=== PATIENT | female | born 1950 | race Two or more races ===

== ENCOUNTER 2021-03-26 12:33 | Outpatient (REF) | payer MEDICARE, SELFPAY ==
--- NOTE | ~2021-03-26 | MM_ITS ---
EXAMINATION: MM SCREENING DIGITAL BREAST TOMOSYNTHESIS, BILATERAL CLINICAL INFORMATION: Screening. Asymptomatic. The lifetime risk of breast cancer based on the Tyrer-Cuzick Model is 1.4%. COMPARISON: Mammography: July 09, 2019 and studies dating back to August 11, 2016 TECHNIQUE: Digital breast tomosynthesis is performed in both the craniocaudal and mediolateral oblique views along with computer-aided detection (CAD). Synthesized 2D images are generated from the tomosynthesis. FINDINGS: There are scattered areas of fibroglandular density (ACR BI-RADS breast composition Category b). There are no significant masses, abnormal calcifications, or other abnormalities. MM/MM tomosynthesis screening BI IMPRESSION: There are no significant changes from prior study. ASSESSMENT: BI-RADS 1: Negative RECOMMENDATION: Routine annual mammography screening. This patient's information was entered into a reminder system with a target due date for their next mammogram.
--- NOTE | ~2021-03-26 | MM_ITS ---
EXAMINATION: BONE DENSITOMETRY CLINICAL INDICATION: Osteoporosis. COMPARISON: None (current study represents initial baseline exam). TECHNIQUE: Using a [employer] DXA System (software version: 13.1) manufactured by [employer], dual-energy x-ray absorptiometry was performed of the lumbar spine and left hip. The images are of good technical quality. Summary results are attached. FINDINGS: AP SPINE L1-L4: BMD 1.074 g/cm2, Z-score 0.6, T-score -0.9, normal. LEFT FEMUR, NECK: BMD 0.844 g/cm2, Z-score 0.1, T-score -1.4, osteopenia. LEFT FEMUR, TOTAL: BMD 1.003 g/cm2, Z-score 1.3, T-score 0.0, normal. IDENTIFIED RISK FACTORS: Early menopause, secondary osteoporosis, hysterectomy. HISTORY OF FRACTURE: None listed. MEDICATIONS: Calcium supplements or multivitamin, vitamin D. MM/XR DEXA axial skeleton IMPRESSION: 1. DIAGNOSIS: Osteopenia based on the lowest T-score value of -1.4 in the femoral neck applying World Health Organization criteria. 2. 10-YEAR FRACTURE RISK PREDICTION, FRAX: Major osteoporotic fracture (clinical spine, forearm, hip or shoulder) 5.3%. Hip fracture 0.7%. 3. Treatment Recommendations: NOF guidelines recommend consideration for treatment in postmenopausal women and men age 50 and older presenting with the following: -A hip or vertebral (clinical or morphometric) fracture. -T-score less than or equal to -2.5 at the femoral neck or spine after appropriate evaluation to exclude secondary causes. -Low bone mass at the hip or spine and a 10-year fracture probability by FRAX of greater than or equal to 3% for hip fracture or greater than or equal to 20% for major osteoporotic fracture based on the [place] adapted WHO algorithm. 4. Other Recommendations: All treatment decisions require clinical judgment and consideration of individual patient factors, including patient preferences, comorbidities, previous drug use, risk factors not captured in the FRAX model (e.g. frailty, falls, vitamin D deficiency, increased bone turnover, interval significant decline in bone density) and possible under or overestimation of fracture risk by FRAX. Additional medical evaluation for secondary cause of low bone mineral density may be appropriate. FUTURE SCAN RECOMMENDATION: People with diagnosed cases of osteoporosis or at high risk for fracture should have regular bone mineral density tests. For patients eligible for Medicare, routine testing is allowed once every 2 years. The testing frequency can be increased to one year for patients who have rapidly progressing disease, those who are receiving or discontinuing medical therapy to restore bone mass, or have additional risk factors.
== END 2021-03-26 12:34 | disposition home or self-care (01) ==
LOC: HO.MAMMO 12:33
PROVIDERS: Visit Provider Internal Medicine Geriatric Medicine
DX: Z12.31 Encounter for screening mammogram for malignant neoplasm of breast (principal); Z13.820 Encounter for screening for osteoporosis; M85.80 Other specified disorders of bone density and structure, unspecified site; Z78.0 Asymptomatic menopausal state; Z98.890 Other specified postprocedural states; Z79.899 Other long term (current) drug therapy
CPT/HCPCS: 77063; 77067; 77080

== ENCOUNTER → 2021-12-22 10:14 | Outpatient (BNVA) | payer MEDICARE, SELFPAY | PROVIDERS: PCP Internal Medicine Geriatric Medicine; Referring Provider Internal Medicine Geriatric Medicine; Visit Provider Internal Medicine Cardiovascular Disease | DX: R07.2 Precordial pain (principal) | CPT/HCPCS: 93005; 99202 ==

== ENCOUNTER → 2022-02-15 10:50 | Outpatient (REF) | payer MEDICARE, SELFPAY ==
--- NOTE | 2022-02-15 10:56 | CA_ITS ---
Acquisition Time: 2022-02-15 11:24:48 Total Exercise Time: 00:03:14 Test Indications: Chest Pain Medications: ATORVASTATIN CANAGLIFLOZIN/METFORMIN OMEPRAZOLE VALSARTAN Protocol: ESTELLA Max HR: 142 BPM 95% of Pred: 149 BPM Max BP: 140/088 mmHG Max Work Load: 4.6 METS Exercise stress test with exercise 3 min 14 sec of Estella stage 1, achieving 95% MPHR, with report of knee pains and need to stop, without anginal symptoms, with isolated PACs and PVCs, ventricular cuplets, one triplet, with normotensive response to exercise, without EKG changes meeting criteria for ischemia, with nonspecific ST abnormality inferiorly at baseline and more pronounced in recovery. Echo images obtained by Beeline at rest and immediately post peak exercise. Definity contrast used. Test reviewed with Dr Darby Referred By: Chapito Darby Overread By: LEVY GREEN
== END ==
LOC: HO.CARD 10:50
PROVIDERS: PCP Internal Medicine Geriatric Medicine; Visit Provider Internal Medicine Cardiovascular Disease
DX: R07.2 Precordial pain (principal)
CPT/HCPCS: 93350; Q9957

== ENCOUNTER 2022-03-29 13:38 | Outpatient (REF) | payer MEDICARE, SELFPAY ==
--- NOTE | ~2022-03-29 | MM_ITS ---
EXAMINATION: MM SCREENING DIGITAL BREAST TOMOSYNTHESIS, BILATERAL CLINICAL INFORMATION: Screening. Asymptomatic. The lifetime risk of breast cancer based on the Tyrer-Cuzick Model is 3%. COMPARISON: Mammography: March 26, 2021 and studies dating back to August 11, 2016 TECHNIQUE: Digital breast tomosynthesis is performed in both the craniocaudal and mediolateral oblique views along with computer-aided detection (CAD). Synthesized 2D images are generated from the tomosynthesis. FINDINGS: There are scattered areas of fibroglandular density (ACR BI-RADS breast composition Category b). There are no significant masses, abnormal calcifications, or other abnormalities. MM/MM tomosynthesis screening BI IMPRESSION: No significant changes from prior exam. ASSESSMENT: BI-RADS 1: Negative RECOMMENDATION: Routine annual mammography screening. This patient's information was entered into a reminder system with a target due date for their next mammogram.
== END 2022-03-29 13:39 | disposition home or self-care (01) ==
LOC: HO.MAMMO 13:38
PROVIDERS: PCP Internal Medicine Geriatric Medicine; Visit Provider Internal Medicine Geriatric Medicine
DX: Z12.31 Encounter for screening mammogram for malignant neoplasm of breast (principal)
CPT/HCPCS: 77063; 77067

== ENCOUNTER 2023-04-04 13:01 | Outpatient (REF) | payer MEDICARE, SELFPAY | END 2023-04-04 13:02 | disposition home or self-care (01) | LOC: HO.MAMMO 13:01 | PROVIDERS: PCP Internal Medicine Geriatric Medicine; Visit Provider Internal Medicine Geriatric Medicine | DX: Z12.31 Encounter for screening mammogram for malignant neoplasm of breast (principal) | CPT/HCPCS: 77063; 77067 ==

== ENCOUNTER → 2023-04-04 13:30 | Outpatient (BNV) | payer MEDICARE, SELFPAY | PROVIDERS: PCP Internal Medicine Geriatric Medicine; Visit Provider Radiology Diagnostic Radiology | DX: Z12.31 Encounter for screening mammogram for malignant neoplasm of breast (principal) | CPT/HCPCS: 77063; 77067 ==

== ENCOUNTER 2023-07-14 09:38 | Outpatient (REF) | payer MEDICARE, SELFPAY ==
[2023-07-14 12:03] LABS: Creatinine Urine 121.68 mg/dL; Microalbum/Creatinine Ratio Ur 7.3 ug/mg cr (<30)
[2023-07-14 12:13] LABS: Alanine Aminotransferase 16 U/L (0-31); Albumin Level 3.9 g/dL (3.5-5.0); Alkaline Phosphatase 50 U/L (39-117); Anion Gap 13 (12-20); Aspartate Amino Transferase 16 U/L (5-31); Bilirubin Total 0.7 mg/dL (0.0-1.0); Blood Urea Nitrogen 13 mg/dL (9-16); Calcium 9.4 mg/dL (8.4-10.2); Carbon Dioxide 28 mmol/L (22-29); Chloride 104 mmol/L (96-108); Estimated Glomerular Filt Rate > 60; Glucose Random 109 mg/dL (60-115); Potassium 3.9 mmol/L (3.3-5.1); Sodium 141 mmol/L (135-145); Total Protein 6.9 g/dL (6.5-8.0)
== END 2023-07-14 09:39 | disposition home or self-care (01) ==
LOC: HO.HHCL 09:38
PROVIDERS: Visit Provider Internal Medicine Geriatric Medicine
DX: E11.65 Type 2 diabetes mellitus with hyperglycemia (principal)
CPT/HCPCS: 36415; 80053; 82043; 82570

== ENCOUNTER 2023-08-10 09:08 | Outpatient (REF) | payer MEDICARE, SELFPAY ==
[2023-08-10 11:54] LABS: Cholesterol 129 mg/dL (<200); HDL Cholesterol 49 mg/dL (>40); LDL Cholesterol Calculated 64 mg/dL (<100); Triglycerides 80 mg/dL (<150)
== END 2023-08-10 09:09 | disposition home or self-care (01) ==
LOC: HO.HHCL 09:08
PROVIDERS: Visit Provider Internal Medicine Geriatric Medicine
DX: E11.65 Type 2 diabetes mellitus with hyperglycemia (principal)
CPT/HCPCS: 36415; 80061

== ENCOUNTER 2024-02-26 09:42 | Outpatient (REF) | payer MEDICARE, SELFPAY ==
[2024-02-26 11:55] LABS: Anion Gap 11 (12-20); Blood Urea Nitrogen 11 mg/dL (9-16); Calcium 9.5 mg/dL (8.4-10.2); Carbon Dioxide 29 mmol/L (22-29); Chloride 106 mmol/L (96-108); Estimated Glomerular Filt Rate > 60; Glucose Random 92 mg/dL (60-115); Potassium 3.7 mmol/L (3.3-5.1); Sodium 142 mmol/L (135-145)
== END 2024-02-26 09:43 | disposition home or self-care (01) ==
LOC: HO.HHCL 09:42
PROVIDERS: Visit Provider Internal Medicine Geriatric Medicine
DX: E11.65 Type 2 diabetes mellitus with hyperglycemia (principal)
CPT/HCPCS: 36415; 80048

== ENCOUNTER 2024-04-10 11:05 | Outpatient (REF) | payer MEDICARE, SELFPAY ==
--- NOTE | ~2024-04-10 | MM_ITS ---
EXAMINATION: BONE DENSITOMETRY CLINICAL INDICATION: Osteopenia. COMPARISON: Baseline BD dated 03/26/2021. TECHNIQUE: Using a [employer] DXA System (software version: 13.1) manufactured by [employer], dual-energy x-ray absorptiometry was performed of the lumbar spine and left hip. The images are of good technical quality. Summary results are attached. FINDINGS: LEFT FEMUR, NECK: Current: BMD 0.850 g/cm2, Z-score 0.3, T-score -1.4, osteopenia. Baseline: BMD 0.844 g/cm2. LEFT FEMUR, TOTAL: Current: BMD 0.989 g/cm2, Z-score 1.3, T-score -0.2, normal, 1.4% decrease from baseline (<5% change is not significant). Baseline: BMD 1.003 g/cm2. AP SPINE L1-L3 (excluding L4): The data of L1-L4 has been changed to exclude the L4 vertebral body, because significant degenerative changes at this level may cause overestimation of lumbar spine density. Current: BMD 1.030 g/cm2, Z-score 0.3, T-score -1.2, osteopenia, 0.5% decrease from baseline (<5% change is not significant). Baseline: BMD 1.035 g/cm2. IDENTIFIED RISK FACTORS: Early menopause, secondary osteoporosis, hysterectomy. HISTORY OF FRACTURE: None listed. MEDICATIONS: Vitamin D. MM/XR DEXA axial skeleton IMPRESSION: 1. DIAGNOSIS: Osteopenia based on the lowest T-score value of -1.4 in the femoral neck applying World Health Organization criteria. 2. 10-YEAR FRACTURE RISK PREDICTION, FRAX: Major osteoporotic fracture (clinical spine, forearm, hip or shoulder) 5.7%. Hip fracture 0.9%. 3. Treatment Recommendations: NOF guidelines recommend consideration for treatment in postmenopausal women and men age 50 and older presenting with the following: -A hip or vertebral (clinical or morphometric) fracture. -T-score less than or equal to -2.5 at the femoral neck or spine after appropriate evaluation to exclude secondary causes. -Low bone mass at the hip or spine and a 10-year fracture probability by FRAX of greater than or equal to 3% for hip fracture or greater than or equal to 20% for major osteoporotic fracture based on the [place] adapted WHO algorithm. 4. Other Recommendations: All treatment decisions require clinical judgment and consideration of individual patient factors, including patient preferences, comorbidities, previous drug use, risk factors not captured in the FRAX model (e.g. frailty, falls, vitamin D deficiency, increased bone turnover, interval significant decline in bone density) and possible under or overestimation of fracture risk by FRAX. Additional medical evaluation for secondary cause of low bone mineral density may be appropriate. FUTURE SCAN RECOMMENDATION: People with diagnosed cases of osteoporosis or at high risk for fracture should have regular bone mineral density tests. For patients eligible for Medicare, routine testing is allowed once every 2 years. The testing frequency can be increased to one year for patients who have rapidly progressing disease, those who are receiving or discontinuing medical therapy to restore bone mass, or have additional risk factors. Electronically signed by: Araseli rGegory MD 04/10/2024 04:46 PM [facility] SCHMITT
--- NOTE | ~2024-04-10 | MM_ITS ---
EXAMINATION: MM SCREENING DIGITAL BREAST TOMOSYNTHESIS, BILATERAL CLINICAL INFORMATION: Screening. Asymptomatic. COMPARISON: Mammography: Comparison is made with available priors TECHNIQUE: Digital breast mammography with tomosynthesis is performed in both the craniocaudal and mediolateral oblique views along with computer-aided detection (CAD). FINDINGS: There are scattered areas of fibroglandular density (ACR BI-RADS breast composition Category b). There are no significant masses, abnormal calcifications, or other abnormalities. MM/MM tomosynthesis screening BI IMPRESSION: No mammographic evidence of malignancy. ASSESSMENT: BI-RADS BI-RADS 1 - Negative RECOMMENDATION: Routine annual mammography screening. 1 year F/U This examination should not preclude the clinical evaluation of a suspicious palpable abnormality. This patient's information was entered into a reminder system with a target due date for their next mammogram. Electronically signed by: Asha Boone DO 04/19/2024 01:40 PM [facility]
== END 2024-04-10 11:06 | disposition home or self-care (01) ==
LOC: HO.MAMMO 11:05
PROVIDERS: PCP Internal Medicine Geriatric Medicine; Visit Provider Internal Medicine Geriatric Medicine
DX: Z12.31 Encounter for screening mammogram for malignant neoplasm of breast (principal); Z13.820 Encounter for screening for osteoporosis; Z78.0 Asymptomatic menopausal state; M85.80 Other specified disorders of bone density and structure, unspecified site
CPT/HCPCS: 77063; 77067; 77080

== ENCOUNTER → 2024-04-10 11:15 | Outpatient (BNV) | payer MEDICARE, SELFPAY | PROVIDERS: PCP Internal Medicine Geriatric Medicine; Visit Provider Internal Medicine | DX: Z12.31 Encounter for screening mammogram for malignant neoplasm of breast (principal) | CPT/HCPCS: 77063; 77067 ==

== ENCOUNTER 2024-08-07 07:56 | Outpatient (REF) | payer MEDICARE, SELFPAY ==
--- OUTSIDE RECORDS SUMMARY | 2024-08-07 08:04 | XMS_ITS | Data Portability ---
Author Organization [facility] [place] [facility], [facility] Address [address] [place] [address] Care Team Providers Care Crane Follower Name Role Phone NAME, PRIMO Primary Care Provider Assessment Encounter Date Assessment Date Assessment LastModified by Organization Details LastModified Time 10/04/2023 10/04/2023 I am seeing the patient today under the supervision of Dr. Ramos who was available but who did not see the patient. HPI: Patient presents today follow-up regarding their Right knee. They have had difficulty up and down stairs sitting standing. Previous injection gave good relief until recent. Problems ambulating. Tusu-wwa-wlfebvi medications are helping somewhat but not significantly. Pain is constant aching sometimes sharp pain with giving out sensations. Past family, medical, social history and review of systems has been reviewed, updated and is located in the patient? s chart. Examination: The patient is well appearing and in no apparent distress. Alert and oriented x3. Gait is symmetric. Examination of the Right knee reveals no evidence of any edema, erythema, or warmth. No Deformity. Range of motion of the knee limited with mild discomfort at the end ranges. Mild effusion. Does have some tenderness to palpation about the medial hemijoint line. No tenderness to palpation about the lateral hemijoint line. Patellofemoral crepitus is noted. mild lateral ligamentous laxity. Negative Soumya? s. Calf is supple and nontender. Neurovascularly intact distally. Impression: Right Knee osteoarthritis Plan: We discussed the role of conservative management including medications, physical therapy, injection and bracing. At this point the patient was to proceed with injection. Please see procedure note. They will follow up with us as scheduled. [email or web address] Not available 10/04/2023 14:24:25 03/21/2024 03/21/2024 I am seeing the patient today under the supervision of Dr Ramos who was available but who did not see the patient. [email or web address] Not available 03/21/2024 11:04:14 07/05/2024 07/05/2024 I am seeing the patient today under the supervision of Dr Ramos who was available but who did not see the patient. [email or web address] Not available 07/05/2024 14:04:02 Plan of Treatment Reminders Order Date Submit Date Provider Last Modified By Organization Details Last Modified Time Details Appointments RECHECK 15 2024 02:00P M Robinson Peres PA-C Not available Not available Not available Lab None recorded . Referral None recorded . Procedures None recorded . Surgeries None recorded . Imaging None recorded . Medication Orders None recorded . Patient TargetsNo targets recorded. Patient InstructionsNo instructions recorded. Reason for Referral None Reported. 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 Procedures Surgical History Date Name Laterality Status Provider Name and Address Organization Details Recorded Time 5 JZKNEE INJ completed Robinson Peres PA-C [address], [place], [address], [facility] 07/05/2024 14:03:56 4 JZKNEE INJ completed Robinson Peres PA-C [address], [place], [address], [facility] 03/21/2024 11:04:08 4 JZShoulder INJ completed Robinson Peres PA-C [address], [place], [address], [facility] 03/21/2024 11:04:09 4 JZKNEE INJ completed Robinson Peres PA-C [address], [place], [address], [facility] 10/04/2023 14:24:20 Imaging Results None recorded. Procedure Notes None recorded. Medical Equipment None Reported. Allergies No known drug allergies Medications Name Sig Start Date Stop Date Status Note LastModified by Organization Details LastModified Time atorvastati n 20 mg tablet TAKE 1 TABLET BY MOUTH EVERY DAY active Not Available Not Available No t Available metoprolol succinate ER 50 mg tablet,exte nded release 24 hr TAKE 1 TABLET BY MOUTH EVERY DAY active Not Available Not Available No t Available aspirin 81 mg tablet,jessika yed release TAKE 1 TABLET BY MOUTH EVERY DAY active Not Available Not Available No t Available glipizide ER 2.5 mg tablet, extended release 24 hr TAKE 1 TABLET (2.5 MG) BY MOUTH IN THE MORNING. DO NOT CRUSH, CHEW, OR SPLIT. active Not Available Not Available No t Available metformin 1,000 mg tablet TAKE 1 TABLET BY MOUTH TWICE A DAY WITH BREAKFAST AND DINNER active Not Available Not Available No t Available omeprazole 20 mg capsule,del ayed release TAKE 1 CAPSULE BY MOUTH EVERY DAY 30 MINUTES TO 1 HOUR BEFORE A MEAL active Not Available Not Available No t Available amoxicillin 875 mg-potassiu m clavulanate 125 mg tablet TAKE 1 TABLET BY MOUTH TWICE A DAY FOR 3 DAYS active Not Available Not Available No t Available valsartan 40 mg tablet TAKE 1 TABLET BY MOUTH EVERY DAY active Not Available Not Available No t Available Vitamin D3 50 mcg (2,000 unit) tablet TAKE 1 TABLET BY MOUTH 1 TIME EACH DAY. active Not Available Not Available No t Available Eliquis 5 mg tablet TAKE 1 TABLET BY MOUTH TWICE A DAY active Not Available Not Available No t Available Trulicity 0.75 mg/0.5 mL subcutaneou s pen injector INJECT 0.75 MG UNDER THE SKIN 1 (ONE) TIME PER WEEK. 10/03 completed Not Available Not Available Not Available Vitals Date Recorded Body height Body mass index (BMI) Body weight Provider Name and Address Organization Details Last Updated DateTime 10/04/2023 152.4 cm 29.7 kg/m2 68528.04 g SAI GUEVARA [facility] 10/04/2023 14:19:04 Date Recorded Body height Body mass index (BMI) Body weight Provider Name and Address Organization Details Last Updated DateTime 03/21/2024 152.4 cm 29.7 kg/m2 11845.04 [facility] 03/21/2024 10:46:46 Date Recorded Body height Body mass index (BMI) Body weight Provider Name and Address Organization Details Last Updated DateTime 07/05/2024 152.4 cm 29.7 kg/m2 62229.04 Shaheen [facility] 07/05/2024 13:57:21 Social History None recorded. Functional Status None recorded. Mental Status None recorded. Family History Nothing Reported. Medical History Condition Response Allergies/Hayfever N Coronary Artery Disease N Breathing or lung disorders N Anxiety/Depression N Emphysema N Nerve Disorders N Thyroid Problems N COPD N Pacemaker N Kidney/Bladder Problems N Anemia N Vascular Disease N Heart Trouble N Heart Attack (NE) N Gastrointestinal Disease N Cholesterol Y Diabetes Y Autoimmune disease N Bleeding Disorder N Orthotics N Seizures/Epilepsy N Arthritis Y Blood Clot N AIDS/HIV N Congestive Heart Failure (CHF) N Acid Reflux (GERD) N Cancer N Stroke N Asthma N Peripheral Vascular Disease N Sleep Apnea N Hepatitis N Heart Disease N Rheumatoid Arthritis N Pulmonary Embolism N Arrhythmia N Headaches N Fibromyalgia N Hypertension Y Osteoporosis N Gynecological HistoryNo gynecological history recorded. Obstetrics History GPAL:G 0 P 0 0 0 0 Past Encounters Encounter ID Performer Location Encounter Start Date Encounter Closed Date Diagnosis/Indication Diagnosis SNOMED-CT Code Diagnosis ICD10 Code Diagnosis Note [id number] [facility] [address] [place] [address] 10/04/2023 14:03:35 10/25/2023 13:40:40 Osteoarthritis of knee 184953766 M17.9 [id number] [facility] [address] [place] [address] 03/21/2024 10:39:12 04/15/2024 16:18:28 Idiopathic osteoarthritis 809118775 M17.11 Disorder of shoulder 118 142834 M25.674 [id number] [facility] [address] [place] [address] 07/05/2024 13:48:24 07/18/2024 15:22:26 Osteoarthritis of knee 872375997 M17.9 Health Concerns Section Related Observation LastModified by Organization Detai ls LastModified Time None Recorded Concern Status LastModified by Organization Details LastModified Time None Recorded Advance Directives Directive None Recorded Payers Encounter Date Sequence Insurance Name Policy Number Policy Ayon Covered Member ID Ayon Member ID Guarantor Name 10/04/2023 1 [place] ([place]IC[place]AC[place]/A DVANTAGE - PPO) [id number] Dorcas Medley [id number] Dorcas Medley 03/21/2024 1 [place] - [place]) [id number] Dorcas Medley [id number] Dorcas Medley 07/05/2024 1 [place] [employer] Dorcas Medley [id number] Dorcas Medley 07/05/2024 2 [place] [facility] Dorcas Medley [id number] Dorcas Medley OBGyn Episode No OBEpisode recorded.
--- OUTSIDE RECORDS SUMMARY | 2024-08-07 08:04 | XMS_ITS | Encounter Summary ---
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 Name Role Phone NameEj MD Primary Care Provider [phone] Reason for Referral * Consultation (Routine) - Authorized Specialty Diagnoses / Procedures Referred By Tomasa chisholm Referred To Contact Gastroenterology Diagnoses Screen for colon cancer NameEj MD [address] [place] [address] Phone: tel: fax: [facility] [address] [place] [address] [address] [place], [place] Phone: tel: fax: Referral ID Status Reason Start Date Expiration Date Visits Requested Visits Authorized [id number] Authorized Specialty Services Required 07/31/2024 07/31/2025 1 1 * Consultation (Routine) - Closed Specialty Diagnoses / Procedures Referred By Tomasa chisholm Referred To Contact Physical Therapy Diagnoses Balance problem NameEj MD [address] [place] [address] Phone: tel: fax: [facility] [address] [place] [id number] Phone: tel: fax: Referral ID Status Reason Start Date Expiration Date V isits Requested Visits Authorized [id number] Closed Specialty Services Required 07/31/2024 07/31/2025 1 1 Reason for Visit * Reason Comments Follow-up Encounter Details Date Type Department Care Team (Late st Contact Info) Description 07/31/2024 11:30 AM EST Office Visit [facility] [address] [place] [address] Name, MD Ej [address] [place] [address] Type 2 diabetes mellitus with hyperglycemia, without long-term current use of insulin (CMS/HCC) (Primary Dx); Balance problem; Screen for colon cancer; Atrial fibrillation, unspecified type (CMS/HCC) Social History Tobacco Use Types Packs/Day Years Used Date Smoking Tobacco: Never Smokeless Tobacco: Never Alcohol Use Standard Drinks/Week Comments Never 0 (1 standard drink = 0.6 oz pur e alcohol) Depression Answer Date Recorded Patient Health Questionnaire-9 Score 1 07/31/2024 Patient Health Questionnaire-9 Score 1 07/31/2024 Last PHQ-9: Questionnaire Data Not on file 0 07/31/2024 Housing Stability Answer Date Recorded What is your housing situation today? I have nica ott 07/31/[address] you li ve. Do you have problems with any of the following? None of the above 07/31/2024 Food Insecurity Answer Date Recorded Within the past 12 months, y ou worried that your food would run out before you got money to buy more: Never True 07/31/2024 Within the past 12 months,th e food you bought just didn't last and you didn't have enough money to get more: Never True Transportation Answer Date Recorded In the past 12 months, has l ack of transportation kept you from medical appts, meetings, work or from getting things needed for daily living? No 07/31/2024 Utilities Answer Date Recorded In the past 12 months, has t he electric, gas, oil or water company threatened to shut off services in your home? No 07/31/2024 Depression Answer Date Recorded Patient Health Questionnaire-2 Score 0 07/31/2024 Internet Access Answer Date Recorded Internet Access Q1 No 07/31/2024 Internet Access Q2 Not on file 07/31/2024 Comments Unknown Sex and Gender Information Value Date Recorded Sex Assigned at Female 04/04/2022 10:29 AM EDT Legal Sex Female 10:29 AM EDT Gender Identity Female 04/04/2022 10:29 AM EDT Sexual Orientation Straight 04/04/2022 10 :29 AM EDT documented as of this encounter Last Filed Vital Signs Vital Sign Reading Time Taken Comments Blood Pressure 128/78 07/31/2024 12:04 PM EST Pulse 72 07/31/2024 11:47 AM EST Temperature 36.6 ??C (97.9 ??F) 07/31/2024 11:[address] Respiratory Rate 18 07/31/2024 11:47 AM EST Oxygen Saturation 97% 07/31/2024 11:47 AM EST Inhaled Oxygen Concentration - - Weight 98 kg (216 lb) 07/31/2024 11:47 AM EST Height 152.4 cm (5') 07/31/2024 11:47 AM EST Body Mass Index 42.18 07/31/2024 11:47 AM EST documented in this encounter Progress Notes * Ej Ulloa MD - 07/31/2024 11:30 AM EST Subjective Patient ID: Dorcas Medley is a 73 y.o. female who presents for Follow-up. Patient comes for a follow-up visit. She feels well today. She was recently seen at [facility] cardiac. She was advised to continue on her current dose of metoprolol and Eliquis. She denies any bleeding problems on Eliquis. She has not a problems with her balance if she stands too quickly. Her BP is normal today. She does not bring her glucose meter. There has been slight worsening of the hemoglobin A1c. She admits to a liberal diet. She has been using her metformin daily as prescribed. Review of Systems Constitutional: Negative for chills and fever. HENT: Negative for sore throat. Respiratory: Negative for cough, shortness of breath and wheezing. Cardiovascular: Negative for chest pain, palpitations and leg swelling. Gastrointestinal: Negative for abdominal pain. Visit Vitals BP 128/78 Pulse 72 Temp 97.9 ??F (36.6 ??C) (Temporal) Resp 18 Ht 5' (1.524 m) Wt 216 lb (98 kg) SpO2 97% BMI 42.18 kg/m?? Smoking Status Never BSA 2.04 m?? Objective Physical Exam Constitutional: Appearance: Normal appearance. Cardiovascular: Rate and Rhythm: Normal rate and regular rhythm. Pulses: Dorsalis pedis pulses are 2+ on the right side and 2+ on the left side. Posterior tibial pulses are 2+ on the right side and 2+ on the left side. Heart sounds: No murmur heard. No gallop. Pulmonary: Effort: Pulmonary effort is normal. No respiratory distress. Breath sounds: Normal breath sounds. No wheezing. Musculoskeletal: Right lower leg: No edema. Left lower leg: No edema. Right foot: Normal range of motion. Left foot: Normal range of motion. Feet: Right foot: Protective Sensation: 5 sites tested. 5 sites sensed. Skin integrity: Skin integrity normal. Toenail Condition: Right toenails are normal. Left foot: Protective Sensation: 5 sites sensed. Skin integrity: Skin integrity normal. Toenail Condition: Left toenails are normal. Neurological: Mental Status: She is alert. Current Outpatient Medications on File Prior to Visit Medication Sig Dispense Refill atorvastatin (Lipitor) 20 MG tablet TAKE 1 TABLET BY MOUTH EVERY DAY 90 tablet 1 cholecalciferol (Vitamin D-3) 50 MCG (2000 UT) tablet Take 1 tablet by mouth 1 (one) time each day.30 tablet 2 Eliquis 5 MG tablet Take 5 mg by mouth. metFORMIN (Glucophage) 1000 MG tablet TAKE 1 TABLET BY MOUTH TWICE A DAY WITH BREAKFAST AND DINNER 180 tablet 1 omeprazole (PriLOSEC) [address] capsule TAKE 1 CAPSULE BY MOUTH EVERY DAY 30 MINUTES TO 1 HOUR BEFORE A MEAL 90 capsule 1 Toprol XL 50 MG 24 hr tablet Take 50 mg by mouth. valsartan (Diovan) 40 MG tablet TAKE 1 TABLET BY MOUTH EVERY DAY 90 tablet 1 No current facility-administered medications on file prior to visit. Assessment/Plan Diagnoses and all orders for this visit: Type 2 diabetes mellitus with hyperglycemia, without long-term current use of insulin ([facility]) Comments: No med changes. We discussed importance of improving her diet. Check fasting blood work listed below. Orders: - POCT Glucose - POCT HGB A1C - CBC auto differential; Future - Comprehensive Metabolic Panel; Future - Lipid Panel, Standard; Future - Albumin, Random Urine W/Creatinine; Future Balance problem Comments: Possibly secondary to the use of BP meds. I recommend to check positions slowly. Drink plenty of water. Referral to PT. She requested referral to [facility] PT since is closer to her house. Orders: - CBC auto differential; Future - Comprehensive Metabolic Panel; Future - Lipid Panel, Standard; Future - Albumin, Random Urine W/Creatinine; Future - Referral to Physical Therapy; Future Screen for colon cancer Comments: Referral to GI for screening colonoscopy Orders: - Referral to Gastroenterology; Future Atrial fibrillation, unspecified type (CMS/HCC) Comments: Continue current dose of metoprolol and Eliquis and [facility] Heart sounds are normal today. documented in this encounter Plan of Treatment Upcoming Encounters Date Type Department Care Team (Late st Contact Info) Description 10/25/2024 10:15 AM EDT Office Visit [facility] [address] [place], [place] [phone] Name, MD Ej [address] [place] [address] Scheduled Orders Name Type Priority Associated Diagnoses Orde r Schedule CBC auto differential Lab Routine Type 2 diabetes mellitus with hyperglycemia, without long-term current use of insulin (CMS/HCC) Balance problem Expected: 07/31/2024 (Approximate), Expires: 07/31/2025 Comprehensive Metabolic Panel Lab Routine Type 2 diabetes mellitus with hyperglycemia, without long-term current use of insulin (CMS/HCC) Balance problem Expected: 07/31/2024 (Approximate), Expires: 07/31/2025 Lipid Panel, Standard Lab Routine Type 2 diabetes mellitus with hyperglycemia, without long-term current use of insulin (CMS/HCC) Balance problem Expected: 07/31/2024 (Approximate), Expires: 07/31/2025 Albumin, Random Urine W/Creatinine Lab Routine Type 2 diabetes mellitus with hyperglycemia, without long-term current use of insulin (CMS/HCC) Balance problem Expected: 07/31/2024 (Approximate), Expires: 07/31/2025 Scheduled Referrals Name Type Priority Associated Diagnoses Order Schedule Referral to Physical Therapy Outpatient Referral Routine Balance problem Expected: 07/31/2024 (Approximate), Expires: 07/31/2025 Referral to Gastroenterology Outpatient Referral Routine Screen for colon cancer Expected: 07/31/2024 (Approximate), Expires: 07/31/2025 documented as of this encounter Procedures Procedure Name Priority Date/Time Associated Diagnosis Comments POCT GLYCATED HEMOGLOBIN, TOTAL Routine 07/31/2024 11:50 AM EST Type 2 diabetes mellitus with hyperglycemia, without long-term current use of insulin ([facility]) POCT GLUCOSE Routine 07/31/2024 11:48 AM EST Type 2 diabetes mellitus with hyperglycemia, without long-term current use of insulin ([facility]) documented in this encounter Results * (ABNORMAL) POCT HGB A1C (07/31/2024 11:50 AM EST) Hemoglobin A1C 7.6(A) 4.0 - 6.0 % QC Media Lot # [id number] Lot# Expiration Date , Blood 07/31/2024 11:5 0 AM EST us Ej Ulloa MD POINT OF CARE TEST ENTER/EDIT OR DERABLES Final Result * (ABNORMAL) POCT Glucose (07/31/2024 11:48 AM EST) Glucose Blood, POC 216(A) 60 - 200 mg/dL QC Media Lot # [id number] Lot# Expiration Date ,097 Blood Capillary blood specimen / Unknown 07/31/2024 11:48 AM EST us Ej Ulloa MD POINT OF CARE TEST ENTER/EDIT OR DERABLES Final Result documented in this encounter Visit Diagnoses Diagnosis Type 2 diabetes mellitus with hyperglycemia, without long-term current use of insulin ([facility])- Primary Balance problem Abnormality of gait Screen for colon cancer Special screening for malignant neoplasms, colon Atrial fibrillation, unspecified type ([facility]) documented in this encounter Additional Health Concerns Assessment Noted Time PHQ-9 Depression Total Score: 1 07/31/19 25 11:53 AM EST documented as of this encounter Care Teams Beer Still Runner Compounder Relationship Specialty Start Date End Date Name, MD Ej [address] [place] [address] PCP - General Family Medicine 06/24/15 documented as of this encounter
--- OUTSIDE RECORDS SUMMARY | 2024-08-07 08:04 | XMS_ITS | Clinical Summary ---
Author Organization [employer] Address [address] [facility] [address] [place] [address] Care Team Providers Care Concrete Products Machine Operator Name Role Phone Name, Ej GRAY Primary Care Provider [phone] Allergies No known active allergies Medications metFORMIN (Glucophage) 1000 MG tablet TAKE 1 TABLET BY MOUTH TWICE A DAY WITH BREAKFAST AND DINNER 180 tablet 1 4 Active Eliquis 5 MG tablet Take 5 mg by mouth. 4 Active Toprol XL 50 MG 24 hr tablet Take 50 mg by mouth. 4 Active cholecalciferol (Vitamin D-3) 50 MCG (1999) tablet Take 1 tablet by mouth 1 (one) time each day. 30 tablet 2 4 Active atorvastatin (Lipitor) 20 MG tabletIndicatio ns:Hypercholest erolemia TAKE 1 TABLET BY MOUTH EVERY DAY 90 tablet 1 5 Active valsartan (Diovan) 40 MG tabletIndicatio ns:Hypercholest erolemia TAKE 1 TABLET BY MOUTH EVERY DAY 90 tablet 1 5 Active omeprazole (PriLOSEC) [address] capsuleIndicati ons:Hypercholes terolemia TAKE 1 CAPSULE BY MOUTH EVERY DAY 30 MINUTES TO 1 HOUR BEFORE A MEAL 90 capsule 1 5 Active Active Problems Problem Noted Date Diagnosed Date Atrial fibrillation 07/31/2024 Osteopenia 05/27/2022 Vitamin D deficiency 05/27/2022 Knee joint replacement status 02/17/2014 Hypertension 06/10/2011 Colon polyp 06/10/2011 Low back pain radiating to left leg 09/11/2009 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 Hyperlipidemia 08/29/2008 Type 2 diabetes mellitus 08/29/2008 Encounters Date Type Department Care Team Description 07/31/2024 11:30 AM EST Office Visit [facility] [address] [place] [address] NameEj MD Type 2 diabetes mellitus with hyperglycemia, without long-term current use of insulin ([facility]) (Primary Dx); Balance problem; Screen for colon cancer; Atrial fibrillation, unspecified type ([facility]/HCC) 06/25/2024 Refill [facility] [address] [place] [address] Ej Ulloa MD Hypercholesterolemia 05/30/2024 10:30 AM EST Office Visit [facility] [address] [place] [address] Ej Ulloa MD Atrial fibrillation, unspecified type ([facility]) (Primary Dx); Type 2 diabetes mellitus with hyperglycemia, without long-term current use of insulin ([facility]); Osteopenia, unspecified location 05/27/2024 Telephone [facility] [address] [place] [phone] Monika Mathews [place] Chart Prep from Last 3 Months Immunizations Name Administration Dates Next Due Influenza High-dose Quadriva lent Preservative Free 03/14/2023,04/30/2021,03/01/2018 Influenza injectable quadriv alent IIV4 with preservative 03/01/2016 Influenza, High Dose Seasona l, Preservative Free 02/20/2024,03/01/2018 Influenza, IIV3, injectable 05/19/2014,0 06/17/2013,05/04/2012,03/04,02/20/2009 Influenza, Unspecified 03/01/2018 Influenza, seasonal, injecta ble, preservative free 05/19/2014,06/17/2013,05/04/2012,03/04,02/20/2009 Novel [id number], preservative-free 06/12/2009 Pneumococcal Conjugate PCV 13 06/12/2017, 010 Pneumococcal Polysaccharide PPSV23 07/19/2018, TD (adult), 2 Lf tetanus tox oid, preservative free, adsorbed 03/09/2021 Tdap 11/21/2008 Zoster, live 10/30/2015,12/14/2012 Social History Tobacco Use Types Packs/Day Years Used Date Smoking Tobacco: Never Smokeless Tobacco: Never Tobacco Cessation:Counseling Given: Not Answered Alcohol Use Standard Drinks/Week Comments Never 0 [...] Orientation Straight 04/04/2022 10 :29 AM EDT Last Filed Vital Signs Vital Sign Reading [...] Mass Index 42.18 07/31/2024 11:47 AM EST Plan of Treatment Upcoming Encounters Date Type Department Care Team (Late st Contact Info) Description 10/25/2024 10:15 AM EDT Office Visit [facility] [address] [place] [address] Name, MD Ej [address] [place] [address] Health Maintenance Due Date Last Done Comments CT Colonography 1950 FIT DNA/Cologuard 1950 FIT 1950 FOBT 1950 Sigmoidoscopy 1950 Hepatitis C Screening 1968 RSV Patients and Patients Aged 60 years or older (1 - Risk 60-74 years 1-dose series) 2010 Zoster Vaccines (2 of 3) 12/25/2015 10/30/2015, 12/03 Colonoscopy 06/18/2018 06/18/2013 Colorectal Cancer Screening 06/18/2018 COVID-19 Vaccine ( season) 2024 04/30/2021, 08/28/2020, 07/31/2020 Diabetes: Urine Protein Screening 07/14/2024 07/14/2023, 06/16/2022, 09/15/2021 Lipid Panel 08/09/2024 08/10/2023, 06/05, 09/15/2021, Additional history exists Diabetes: Hemoglobin A1C 10/28/2024 025, 02/20/2024, 10/19/2023, Additional history exists Mammogram 04/10/2025 04/10/2024, 03/07, 04/04/2023, Additional history exists Alcohol/Substance Use Screening 07/31/2025 07/31/2024 Depression Screening 07/31/2025 07/31/2024, 07/31/19 Diabetes: Foot Exam 07/31/2025 07/31/2024, 07/31/2024, 07/31/2024, Additional history exists SDOH Screening 07/31/2025 07/31/2024 Tobacco Screening 07/31/2025 07/31/2024 Eye Exam 10/10/2025 10/11/2023 DTaP/Tdap/Td Vaccines (3 - Td or Tdap) 03/09/2031 03/09/2021, 11/21/2008 Pneumococcal Vaccine: 50+ Years Completed 07/19/2018, 06/12/2017, 11/13/2009, Additional history exists Influenza Vaccine Completed 02/20/2024, , 04/30/2021, Additional history exists HIB Vaccines Aged Out No longer eligi ble based on patient's age to complete this topic HPV Vaccines Aged Out No longer eligi ble based on patient's age to complete this topic Hepatitis A Vaccines Aged Out No long er eligible based on patient's age to complete this topic Hepatitis B Vaccines Aged Out No long er eligible based on patient's age to complete this topic IPV Vaccines Aged Out No longer eligi ble based on patient's age to complete this topic Meningococcal Vaccine Aged Out No pao juan antonio eligible based on patient's age to complete this topic RSV under 20 months Aged Out No longe r eligible based on patient's age to complete this topic Rotavirus Vaccines Aged Out No longer eligible based on patient's age to complete this topic Procedures Procedure Name Priority Date/Time Associated Diagnosis Comments POCT GLYCATED HEMOGLOBIN, TOTAL Routine 07/31/2024 11:50 AM EST Type 2 diabetes mellitus with hyperglycemia, without long-term current use of insulin ([facility]) POCT GLUCOSE Routine 07/31/2024 11:48 AM EST Type 2 diabetes mellitus with hyperglycemia, without long-term current use of insulin ([facility]) AMB REFERRAL TO CARDIOLOGY Routine 07/19/2024 Atrial fibrillation, unspecified type ([facility]) POCT GLUCOSE Routine 05/30/2024 10:27 AM EST Type 2 diabetes mellitus with hyperglycemia, without long-term current use of insulin ([facility]) BI MAMMOGRAM SCREENING TOMOSYNTHESIS BILATERAL Routine 04/10/2024 11:07 AM EST DIABETES EYE EXAM Routine 10/11/2023 LIPID PANEL, STANDARD Routine 08/10/2023 9:13 AM EST Type 2 diabetes mellitus with hyperglycemia, without long-term current use of insulin ([facility]) ALBUMIN, RANDOM URINE W/CREATININE Routine 07/14/2023 9:50 AM EST Type 2 diabetes mellitus with hyperglycemia, without long-term current use of insulin ([facility]) COLONOSCOPY Routine 06/18/2013 from Last 3 Months or Most Recently Relevant to Health Maintenance Results * (ABNORMAL) POCT HGB A1C (07/31/2024 11:50 AM EST) Hemoglobin A1C 7.6(A) 4.0 - 6.0 % QC Media Lot # [id number] Lot# Expiration Date , Blood 07/31/2024 11:5 0 AM EST Result Arvind Ulloa MD POINT OF CARE TEST ENTER/EDIT OR DERABLES Final Result * (ABNORMAL) POCT Glucose (07/31/2024 11:48 AM EST) Only the most recent of2 resultswithin the time period is included. Glucose Blood, POC 216(A) 60 - 200 mg/dL QC Media Lot # [id number] Lot# Expiration Date [id number] Blood Capillary blood specimen / Unknown 07/31/2024 11:48 AM EST Result Arvind Ulloa MD POINT OF CARE TEST ENTER/EDIT OR DERABLES Final Result * Referral to Cardiology (07/19/2024) us Ej Name MD OUTPATIENT REFERRAL ORDERABLES F inal Result * BI Mammogram Screening Tomosynthesis Bilateral (04/10/2024 11:07 AM EST) Anatomical Region Laterality Modality Breast Bilateral Mammography 04/10/2024 11:0 7 AM EST Narrative 04/19/2024 1:43 PM EST ? [facility] ? [address] ?[place] [address] ? Mammography Report ? Signed ? Patient: Dorcas Medley ?MR#: [id number] ?? [id number] ? : 1950 ?Acct:[id number] ? Age/Sex: 73 / F ?ADM Date: 04/10/24 ? Loc: HO.MAMMO ? Attending Dr: Ej Name MD ? Ordering Physician: Name,Ej MD ?Results: 1Negative ? Date of Service: 04/10/24 ?Follow Up: 1 Year From Orig ?? inal Mammogram ? Procedure(s): MM tomosynthesis screening BI ?? Accession Number(s): [id number] ? cc: Name,Ej GRAY ? EXAMINATION: ?? MM SCREENING DIGITAL BREAST TOMOSYNTHESIS, BILATERAL ? CLINICAL INFORMATION: ? Screening. Asymptomatic. ? COMPARISON: ?? Mammography: Comparison is made with available priors ? TECHNIQUE: ?? Digital breast mammography with tomosynthesis is performed in both the ?? craniocaudal and mediolateral oblique views along with computer-aided ?? detection (CAD). ? FINDINGS: ?? There are scattered areas of fibroglandular density (ACR BI-RADS breast ?? composition Category b). ? There are no significant masses, abnormal calcifications, or other ?? abnormalities. ? MM/MM tomosynthesis screening BI ?? IMPRESSION: ?? No mammographic evidence of malignancy. ? ASSESSMENT: ? BI-RADS BI-RADS 1 - Negative ? RECOMMENDATION: ?? Routine annual mammography screening. ? 1 year F/U ? This examination should not preclude the clinical evaluation of a ?? suspicious palpable abnormality. ? This patient's information was entered into a reminder system with a ?? target due date for their next mammogram. ? Electronically signed by: ??Asha Boone DO ??04/19/2024 01:40 PM EST ?? RP ? Dictated By: ?Asha Boone DO ? Signed By: ?<Electronically signed by Asha Boone, DO in OV> ? 04/19/24 1340 ? DD/ 1107 ? TD/TT: 04/10/24 1130 ? Mission Planner: ? Procedure Note Santino Tao - 04/19/2024 [facility] [address] [place] [address] Mammography Report Signed Patient: Dorcas Medley LMR#: [id number] : 1Acct:[id number] Age/Sex: 73 / FADM Date: 04/10/24 Loc: HO.MAMMO Attending Dr: Ej Ulloa MD Ordering Physician: Ej Ulloaesults: 1Negative Date of Service: 04/10/24Follow Up: 1 Year From Orig inal Mammogram Procedure(s): MM tomosynthesis screening BI Accession Number(s): [id number] cc: Ej Ulloa MD EXAMINATION: MM SCREENING DIGITAL BREAST TOMOSYNTHESIS, BILATERAL CLINICAL INFORMATION: Screening. Asymptomatic. COMPARISON: Mammography: Comparison is made with available priors TECHNIQUE: Digital breast mammography with tomosynthesis is performed in both the craniocaudal and mediolateral oblique views along with computer-aided detection (CAD). FINDINGS: There are scattered areas of fibroglandular density (ACR BI-RADS breast composition Category b). There are no significant masses, abnormal calcifications, or other abnormalities. MM/MM tomosynthesis screening BI IMPRESSION: No mammographic evidence of malignancy. ASSESSMENT: BI-RADS BI-RADS 1 - Negative RECOMMENDATION: Routine annual mammography screening. 1 year F/U This examination should not preclude the clinical evaluation of a suspicious palpable abnormality. This patient's information was entered into a reminder system with a target due date for their next mammogram. Electronically signed by: Asha Boone DO 04/19/2024 01:40 PM EST RP Dictated By: Asha Boone DO Signed By: <Electronically signed by Asha Boone DO in OV> 04/19/24 1340 DD/ 1107 TD/TT: 04/10/24 1130 Mission Planner: us Ej Ulloa MD IMG BI PROCEDURES Final Result * Hm Diabetes Eye Exam (10/11/2023) Eye Exam Normal Normal us Ej Ulloa MD HEALTH MAINTENANCE Final Result * Lipid Panel, Standard (08/10/2023 9:13 AM EST) Triglycerides 80 <150 mg/dL [facility] Comment:Desirable Triglyceri de: less than 150 mg/dLBorderline High Triglyceride 150-199 mg/dLHigh Triglyceride: 200-499 mg/dLVery High Triglyceride: greater than or equal to 5OO mg/dL Cholesterol 129 <200 mg/dL [facility] Comment:Desirable Cholestero l: less than 200 mg/dLBorderline High Cholesterol: 200-239 mg/dLHigh Cholesterol: greater than 239 mg/dL LDL Cholesterol Calculated 64 <100 mg/dL [facility] Comment:Desirable LDL: less than 100 mg/dLNear Optimal/Above Optimal LDL: 110- 129 mg/dLBorderline High LDL: 130-159 mg/dLHigh LDL: 160-189 mg/dLVery High LDL: greater than or equal to 190 mg/dL HDL Cholesterol 49 >40 mg/dL [facility] Comment:Desirable HDL: great er than 40 mg/dL Note: This HDL assay may give artificially low results in patients with liver disease. Blood Venous blood specimen / Unknown 08/10/2023 9:13 AM EST 08/10/2023 11:31 AM EST us Ej Ulloa MD LAB BLOOD ORDERABLES Final Resul t Performing Organization Address [facility] Co de Phone Number [facility] [address] [place] [phone] * Albumin, Random Urine W/Creatinine (07/14/2023 9:50 AM EST) Creatinine, Urine 121.68 mg/dL [facility] Microalbumin Urine 9.0 mg/L [facility] Microalbum Creatinine Ratio Ur 7.3 <30 ug/mg cr [facility] Comment:Albumin/Creatinine R atio Reference Ranges: Normal: < 30 ug/mg creatinine Microalbuminuria: 30 - 300 ug/mg creatinineClinical Albuminuria: > 300 ug/mg creatinine Urine (Urine, Random) 07/14/2023 9:50 AM EST 07/14/2023 11:21 AM EST us Ej Ulloa MD LAB URINE ORDERABLES Final Resul t Performing Organization Address [facility] de Phone Number [facility] [address] [place] [phone] * Hm Colonoscopy (06/18/2013) Colonoscopy Normal Normal Narrative Ellyn Alonso - 06/18/2013 Repeat in 5 years [facility] Provider HEALTH MAINTENANCE Final Result from Last 3 Months or Most Recently Relevant to Health Maintenance Insurance [facility] MEDICARE ADVANTAGE HMO [facility] STANDARD Care Teams Concrete Products Machine Operator Relationship Specialty Start Date End Date Name, MD Ej [address] [place] [phone] PCP - General Family Medicine 06/24/15
--- OUTSIDE RECORDS SUMMARY | 2024-08-07 08:04 | XMS_ITS | Encounter Summary ---
Author Organization [employer] Address [address] [place] [address] [address] [place] [address] Care Team Providers Care Auto Garage Mechanic Name Role Phone Name, Ej GRAY Primary Care Provider [phone] Encounter Details Date Type Department Care Team (Late Contact Info) Description 11/07/2022 Abstract [facility] [address] [place] [address] [phone] Ej Ulloa MD [address] [place] [address] [phone] Social History Tobacco Use Types Packs/Day Years Used Date Smoking Tobacco: Never Smokeless Tobacco: Never PHQ-2 Answer Date Recorded Patient Health Questionnaire-2 Score 0 06/07/2022 Depression Answer Date Recorded Patient Health Questionnaire-2 Score 0 06/07/2022 Comments Unknown Sex and Gender Information Value Date Recorded Sex Assigned at Female 04/04/2022 10:29 AM EDT Legal Sex Female 10:29 AM EDT Gender Identity Female 04/04/2022 10:29 AM EDT Sexual Orientation Straight 04/04/2022 10 :29 AM EDT documented as of this encounter Plan of Treatment Upcoming Encounters Date Type Department Care Team (Late st Contact Info) Description 10/25/2024 10:15 AM EDT Office Visit [facility] [address] [place] [address] [phone] Ej Ulloa MD [address] [place] [address] [phone] documented as of this encounter Procedures Procedure Name Priority Date/Time Associated Diagnosis Comments COLONOSCOPY Routine 06/18/2013 documented in this encounter Results * Colonoscopy (06/18/2013) Colonoscopy Normal Normal Narrative Ellyn Alonso - 06/18/2013 Repeat in 5 years Historical Provider HEALTH MAINTENANCE Final Result documented in this encounter Visit Diagnoses Not on filedocumented in this encounter Care Teams Auto Garage Mechanic Relationship Specialty Start Date End Date Name, MD Ej [address] [place] [address] PCP - General Family Medicine 06/24/15 documented as of this encounter
--- OUTSIDE RECORDS SUMMARY | 2024-08-07 08:05 | XMS_ITS | Encounter Summary ---
Author Organization [employer] Address [address] [facility] [address] [place] [address] Care Team Providers Care Scratcher Name Role Phone Name, Ej GRAY Primary Care Provider [phone] Reason for Visit * Reason Onset Date Comments Medication Question 04/05/2023 Encounter Details Date Type Department Care Team ([facility] st Contact Info) Description 04/05/2023 Telephone [facility] [address] [place], [place] [phone] Name, MD Ej [address] [place] [address] Medication Question Social History Tobacco Use Types Packs/Day Years Used Date Smoking Tobacco: Never Smokeless Tobacco: Never Alcohol Use Standard Drinks/Week Comments Never 0 (1 standard drink = 0.6 oz pur e alcohol) PHQ-2 Answer Date Recorded Patient Health Questionnaire-2 Score 0 06/07/2022 Housing Stability Answer Date Recorded What is your housing situation today? I have nicaasuncion ott 04/05/[address] you li ve. Do you have problems with any of the following? None of the above 04/05/2023 Food Insecurity Answer Date Recorded Within the past 12 months, y ou worried that your food would run out before you got money to buy more: Never True 04/05/2023 Within the past 12 months,th e food you bought just didn't last and you didn't have enough money to get more: Never True 06/2022 Transportation Answer Date Recorded In the past 12 months, has l ack of transportation kept you from medical appts, meetings, work or from getting things needed for daily living? No 04/05/2023 Utilities Answer Date Recorded In the past 12 months, has t he electric, gas, oil or water [employer] threatened to shut off services in your home? No 04/05/2023 Depression Answer Date Recorded Patient Health Questionnaire-2 Score 0 06/07/2022 Comments Unknown Sex and Gender Information Value Date Recorded Sex Assigned at Female 04/04/2022 10:29 AM EDT Legal Sex Female 10:29 AM EDT Gender Identity Female 04/04/2022 10:29 AM EDT Sexual Orientation Straight 04/04/2022 10 :29 AM EDT documented as of this encounter Miscellaneous Notes * Telephone Encounter - Yonny Quinn RN - 04/05/2023 2:15 PM EDT FYI T/C to [facility] for below message, Pharmacist states pt.'s might has deductible for her insurance, but this time co-pay is 225$. T/C to pt. For below message. No answer. LVM to call back on [phone].. RN will forward this message to PCP as DEANNE. * Telephone Encounter - Yasemin Treviño - 04/05/2023 1:22 PM EDT Tc from daughter requesting a call in regards to dulaglutide (Trulicity) 0.75 MG/0.5ML solution pen-injector. States co-pay is 225 and cannot afford. Please contact daughter at [phone] documented in this encounter Plan of Treatment Upcoming Encounters Date Type Department Care Team (Late st Contact Info) Description 10/25/2024 10:15 AM EDT Office Visit [facility] [address] [place] [address] Name, MD Ej [address] [place] [address] documented as of this encounter Visit Diagnoses Not on filedocumented in this encounter Care Teams Scratcher Relationship Specialty Start Date End Date Name, MD Ej [address] [place] [address] PCP - General Family Medicine 06/24/15 documented as of this encounter
--- OUTSIDE RECORDS SUMMARY | 2024-08-07 08:05 | XMS_ITS | Clinical Summary ---
Author Organization [facility] [address] [place] [address] [place] [phone] Phone Care Team Providers Care Digital Asset Manager Name Role Phone Sia Rodriguez MD Primary Care Provider Unava ilable Allergies No known active allergies Medications omeprazole (PriLOSEC) [address] capsule Take 1 Cap by mouth daily. 0 Active metFORMIN XR (GLUCOPHAGE-XR) 500 mg 24 hr tablet TAKE 1 TABLET BY MOUTH EVERY DAY IN THE MORNING WITH BREAKFAST 9 Active clotrimazole-be tamethasone (LOTRISONE) 1-0.05 % cream Apply to rash under abdominal fold 1-2x/day until healed. May repeat if recurs 9 Active atorvastatin (LIPITOR) 20 mg tablet Take 1 Tab by mouth daily. 8 Active valsartan (DIOVAN) 40 mg tablet Take 1 Tab by mouth daily. 8 Active ibuprofen (ADVIL,MOTRIN) 800 mg tablet Take 1 Tab by mouth every 8 hours as needed for Pain. 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 DM type 2 (diabetes mellitus, type 2) 08/29/2008 High cholesterol 08/29/2008 Immunizations Name Administration Dates Next Due H1N1 Inj Preservative Free 06/12/2009 Influenza trivalent, 0.5mL, preservative free (Fluarix; FluLaval; Fluzone) ages 6mo and older (Afluria) 3 years and older 05/19/2014,06/17/2013,05/04/2012,03/04,02/20/2009 Influenza, Unspecified 03/01/2018 Pneumococcal conjugate 13 va lent (Prevnar 13, PCV13) 2mo and older 06/12/2017 Pneumococcal polysaccharide 23 valent (Pneumovax 23) 2yo and older 07/19/2018,11/13/2009 Tdap Tetanus diptheria acell ular pertussis (Boostrix; Adacel) 7yo and older 11/21/2008 Zoster Live 12/14/2012 Surgical History Surgery Date Site/Laterality Comments CATARACT EXTRACTION PROCEDURE: HISTORICAL CATARACT REMOVAL; COMMENT: bilateral OTHER SURGICAL HISTORY PROCEDURE: [place] SURGICAL ARTHROSCOPY SHOULDER LMTD DBRDMT 06/06 HYSTERECTOMY PROCEDURE: HISTORICAL HYSTERECTOMY COLONOSCOPY 05/27/11 PROCEDURE: HISTORICAL COLONOSCOPY; COMMENT: 1 cm poolyp lost; tics; repeat in 6 months COLONOSCOPY 03/23/12 PROCEDURE: [place] COLONOSCOPY STOMA DX INCLUDING COLLJ SPEC SPX; COMMENT: tics; repeat in 1 year COLONOSCOPY 06/18/13 PROCEDURE: [place] COLONOSCOPY STOMA DX INCLUDING COLLJ SPEC SPX; COMMENT: tics; repeat in 5 yrs OTHER SURGICAL HISTORY 10/23/2017 PROCEDURE: COLONOSCOPY/REMOVE LESION; COMMENT: adenomas and tics; mediocre prep; repeat in 2 years Medical History Medical History Date Comments Type II or unspecified type diabetes mellitus with unspecified complication, not stated as uncontrolled DX:Type II or unspecified ty pe diabetes mellitus with unspecified complication, not stated as uncontrolled Heart disease, unspecified 09/05/2008 DX:He art disease, unspecified Unspecified essential hypertension DX:Unspecified essential hypertension Family History Medical History Relation Name Comments Cataracts Maternal Grandmother Blindness Neg Hx Breast cancer Neg Hx Glaucoma Neg Hx Macular degeneration Neg Hx Strabismus Neg Hx Relation Name Status Comments Maternal Grandmother Social History Tobacco Use Types Packs/Day Years Used Date Smoking Tobacco: Never Smokeless Tobacco: Never Alcohol Use Standard Drinks/Week Comments No 0 (1 standard drink = 0.6 oz pur e alcohol) Comments Unknown Sex and Gender Information Value Date Recorded Sex Assigned at Not on file Legal Sex Female 10:55 PM EST Gender Identity Not on file Sexual Orientation Not on file Obstetrics History Plan of Treatment Upcoming Encounters Date Type Department Care Team (Late st Contact Info) Description 09/03/2024 11:00 AM EDT Office Visit Obstetrics and Gynecology - [address] [phone] Cristina Dias MD [address] [place] [phone] Health Maintenance Due Date Last Done Comments Diabetes: Annual Foot Exam 1960 Diabetes: Annual Retina Eye Exam 1960 Zoster Vaccines (2 of 3) 02/08/2013 12/14/2012 DTaP,Tdap,and Td Vaccines (2 - Td or Tdap) 11/21/2018 11/21/2008 Diabetes: Annual GFR (Glomerular Filtration Rate) 08/12/2019 08/11/2018 Breast Cancer Screening 07/09/2021 07/09/19 20, 07/07/2018, 06/27/2017 COVID-19 Vaccine ( season) 2024 Influenza Vaccine (#1) 2024 8, 05/19/2014, 06/17/2013, Additional history exists Cholesterol Screening (Lipid Panel) 06/25/2024 08/11/2018 Colorectal Cancer Screening: Colonoscopy 06/25/2024 10/23/2017 Depression Screening 06/25/2024 Diabetes: Annual Urine Albumin-Creatinine Ratio (uACR) 06/25/2024 08/11/2018 Diabetes: Blood Sugar Control Test (HGBA1C) 06/25/2024 05/04/2018 Falls Risk Assessment 06/25/2024 Hypertension/CHF/CAD Annual BMP Blood Test 06/25/2024 08/11/2018 Medicare Annual Wellness Visit 06/25/2024 Social Influencers of Health Screening 06/25/2024 RSV Immunization Patients 60+ Years Old (1 - 1-dose 75+ series) 2025 Osteoporosis Screening (Bone Density Screening) 06/27/2027 06/27/2017 Hepatitis C Screening Completed 07/11/2017 Pneumococcal Vaccine: 50+ Years Completed 07/19/2018, 06/12/2017, 11/13/2009 HIB Vaccines Aged Out No longer eligi [...] on patient's age to complete this topic MMR Vaccines Aged Out No longer eligi ble based on patient's age to complete this topic Meningococcal ACWY Vaccine Aged Out N o longer eligible based on patient's age to complete this topic Meningococcal B Vacine Aged Out No lo nger eligible based on patient's age to complete this topic RSV Immunization Patients Under 20 months Aged Out No longer eligible based on patient's age to complete this topic Varicella Vaccines Aged Out No longer eligible based on patient's age to complete this topic Procedures Procedure Name Priority Date/Time Associated Diagnosis Comments [facility] SCREENING DIGITAL Routine 07/09/2019 2:40 PM EST Encounter for screening mammogram for malignant neoplasm of breast URINE ALBUMIN CREATININE RATIO Routine 08/11/2018 ANNUAL BMP BLOOD TEST Routine 08/11/2018 LIPID PANEL Routine 08/11/2018 HEMOGLOBIN A1C Routine 05/04/2018 COLONOSCOPY Routine 10/23/2017 HEPATITIS C SCREENING Routine 07/11/2017 DXA BONE DENSITY STUDY 1+ SITS AXIAL SKEL Routine 06/27/2017 3:59 PM EST Encounter for screening for osteoporosis from Last 3 Months or Most Recently Relevant to Health Maintenance Results * [facility]A SCREENING DIGITAL (07/09/2019 2:40 PM EST) Anatomical Region Laterality Modality Mammography 07/09/2019 1:22 PM EST Narrative 07/09/2019 2:40 PM EST [facility] Diagnostic Imaging Department [address] [place], [place] [id number] Patient: ??ASA MEDLEY ?/Age/Sex: 1950 - 68 - F Unit#: ??[id number] ? Location/Status: ??SPDIMAM/REG CLI ? Mnemonic/Ordering Site: ??DIGSC/SPMAM Ordering Physician: ??STEPHENIE CARRIZALES [facility] Screening Digital - 07/09/19 - 1342 INDICATION: SCREENING COMPARISON: [place] exams of 07/07/2018, 06/27/2017, and 06/13/2015 TECHNIQUE: CC and MLO views of the breasts were obtained, using full field digital mammography with 3D tomosynthesis views in the MLO projection. Computer aided detection with the Draker 7.2-H was employed. FINDINGS: The breasts are almost entirely composed of fat. No suspicious masses, suspicious microcalcifications, or areas of architectural distortion are identified. ??Benign-appearing breast and vascular calcification is present bilaterally. There are no secondary signs of breast malignancy. Compared to the prior exam, no adverse interval change. IMPRESSION: ??No specific mammographic evidence of breast malignancy. Lack of an imaging correlate should not deter or delay biopsy of a clinically significant palpable finding. BI-RADS ??- Category 2 - Benign finding 3342F, 7025F Annual screening mammography is recommended. Patient entered into a reminder system with a target date for the next mammogram. ([id number] / [id number]) , ??[id number] Dictating Physician: ??VAL DAUGHERTY MD Electronically Signed by: ??VAL DAUGHERTY MD Dic Date/Time: ??07/09/19 1437 Sign date/Time: ??07/09/19 1440 Procedure Note Val Daugheryt - 05/25/2022 [facility] Diagnostic Imaging Department [address] [place] [id number] Patient: GALINDOASA/Age/Sex: 1950 - 68 - F Unit#: [id number] Location/Status: SPDIMA/REG CLI Mnemonic/Ordering Site: [facility] Ordering Physician: STEPHENIE CARRIZALES S[facility] Screening Digital - 07/09/19 - 1342 INDICATION: SCREENING COMPARISON: [place] exams of 07/07/2018, 06/27/2017, and 06/13/2015 TECHNIQUE: CC and MLO views of the breasts were obtained, using full field digital mammography with 3D tomosynthesis views in the MLO projection. Computer aided detection with the Draker 7.2-H was employed. FINDINGS: The breasts are almost entirely composed of fat. No suspicious masses, suspicious microcalcifications, or areas ofarchitectural distortion are identified. Benign-appearing breast and vascularcalcification is present bilaterally. There are no secondary signs of breastmalignancy. Compared to the prior exam, no adverse interval change. IMPRESSION: No specific mammographic evidence of breast malignancy. Lack of an imaging correlate should not deter or delay biopsy of aclinically significant palpable finding. BI-RADS - Category 2 - Benign finding 3342F, 7025F Annual screening mammography is recommended. Patient entered into a reminder system with a target date for the next mammogram. ([id number] / [id number]) , [id number] Dictating Physician: VAL DAUGHERTY MD Electronically Signed by: VAL DAUGHERTY MD Dic Date/Time: 07/09/19 1436 Sign date/Time: 07/09/19 1440 Result [facility] Stephenie Carrizales MILD DISABILITIES TEACHER IMG BI PROCEDURES Final Result * Urine Albumin Creatinine Ratio (08/11/2018) [facility] Urine Albumin Creatinine Ratio Abstracted Result [facility] Provider HEALTH MAINTENANCE Final Result * Annual BMP Blood Test (08/11/2018) [facility] Annual BMP Blood Test Abstracted Result [facility] HEALTH MAINTENANCE Final Result * Lipid panel (08/11/2018) [facility] LDL/HDL Ratio 3 0 - 4 Triglycerides 98 0 - 150 mg/dL Cholesterol 178 0 - 200 mg/dL HDL 68 >=40 mg/dL LDL Cholesterol 91 0 - 100 mg/dL Blood Venous blood specimen / Unknown Result [facility] Provider LAB BLOOD ORDERABLES Kaylin l Result * (ABNORMAL) Hemoglobin A1c (05/04/2018) [facility] Hemoglobin A1C 7.2(A) 4.0 - 6.0 % Blood Venous blood specimen / Unknown Result [facility] Provider LAB BLOOD ORDERABLES Kaylin l Result * Colonoscopy (10/23/2017) [facility] Colonoscopy No Interpretation , Abstracted Anatomical Region Laterality Modality Other Result [facility] Provider HEALTH MAINTENANCE Final Result * Hepatitis C Screening (07/11/2017) [facility] Hepatitis C Screening Abstracted Result [facility] Provider HEALTH MAINTENANCE Final Result * DXA BONE DENSITY STUDY 1+ SITS AXIAL SKEL (06/27/2017 3:59 PM EST) Anatomical Region Laterality Modality Bone Densitometr y 06/12/2017 2:43 PM EST Narrative 06/27/2017 4:04 PM EST DEXA SCAN: Lumbar Spine T-score is -1.1. ?? (SD relative to 20-29 y/o adult) Z-score is 0.8. ??(SD relative to age matched peers) This is considered osteopenia by WHO criteria. Left Hip T-score is -1.1. Z-score is 0.3. This is considered osteopenia by WHO criteria. Comparison exam(s): Left hip bone mineral density has decreased 7% and lumbar spine unchanged. IMPRESSION: Osteopenia by WHO criteria. This patient has a 4.4% risk of major osteoporotic fracture and a 0.4% risk of hip fracture over the next 10 years. (World Health Organization Fracture Risk Assessment) [facility] Department of Internal Medicine recommends using National Osteoporosis Foundation (NOF) guidelines in treatment decisions related to osteoporosis. NOF guidelines suggest considering treatment for postmenopausal women and men aged 50 or older presenting with the following: History of hip or vertebral fracture. T-score = -2.5 (DXA) at the femoral neck, total hip, or spine, after appropriate evaluation to exclude secondary causes. Low bone mass (T-score between -1.0 and -2.5 at the femoral neck or spine) AND a 10-year probability of a hip fracture = 3% OR a 10-year probability of a major osteoporosis-related fracture = 20% based on the [place]-adapted WHO algorithm Please note that all treatment decisions require clinical judgment and consideration of individual patient factors, including patient preferences, co-morbidities, previous drug use, risk factors not captured in the FRAX model (e.g., frailty, falls, vitamin D deficiency, increased bone turnover, interval significant decline in bone density) and possible under- or over-estimation of fracture risk by FRAX. Optional alternative screening schedule based on karyna Lucero., [facility] June 23, 2011 for patients with osteopenia (based on hip BMD T-score) is as follows: * ??advanced osteopenia (T scores -2.00 to -2.49), BMD testing every year * ??moderate osteopenia (T scores -1.50 to -1.99), BMD testing every 5 years mild osteopenia or normal BMD (T scores -1.50 and higher), BMD testing every 15 years Procedure Note Jesus Pang MD - 07/07/2023 DEXA SCAN: Lumbar Spine T-score is -1.1. (SD relative to 20-29 y/o adult) Z-score is 0.8. (SD relative to age matched peers) This is considered osteopenia by WHO criteria. Left Hip T-score is -1.1. Z-score is 0.3. This is considered osteopenia by WHO criteria. Comparison exam(s): Left hip bone mineral density has decreased 7% andlumbar spine unchanged. IMPRESSION: Osteopenia by WHO criteria. This patient has a 4.4% risk of majorosteoporotic fracture and a 0.4% risk of hip fracture over the next 10 years. (WorldHealth Organization Fracture Risk Assessment) [facility] Department of Internal Medicine recommendsusing National Osteoporosis Foundation (NOF) guidelines in treatment decisions related toosteoporosis. NOF guidelines suggest considering treatment for postmenopausal women and menaged 50 or older presenting with the following: History of hip or vertebral fracture. T-score = -2.5 (DXA) at the femoral neck, total hip, or spine, afterappropriate evaluation to exclude secondary causes. Low bone mass (T-score between -1.0 and -2.5 at the femoral neck or spine)AND a 10-year probability of a hip fracture = 3% OR a 10-year probability of a majorosteoporosis-related fracture = 20% based on the [place]-adapted WHO algorithm Please note that all treatment decisions require clinical judgment andconsideration of individual patient factors, including patient preferences, co- morbidities,previous drug use, risk factors not captured in the FRAX model (e.g., frailty, falls, vitaminD deficiency, increased bone turnover, interval significant decline in bone density) andpossible under- or over-estimation of fracture risk by FRAX. Optional alternative screening schedule based on karyna Lucero., NEJJanuary 2011 for patients with osteopenia (based on hip BMD T-score) is as follows: * advanced osteopenia (T scores -2.00 to -2.49), BMD testing every year * moderate osteopenia (T scores -1.50 to -1.99), BMD testing every 5years mild osteopenia or normal BMD (T scores -1.50 and higher), BMD testingevery 15 years Sia Rodriguez MD IMG DXA PROCEDURES Final Res ult from Last 3 Months or Most Recently Relevant to Health Maintenance Insurance [employer] Care Teams Digital Asset Manager Relationship Specialty Start Date End Date Sia Rodriguez MD PCP - General Internal Medicine 02/22/17
[2024-08-07 11:36] LABS: MANUAL DIFF FLAG NO
[2024-08-07 11:48] LABS: Basophils Absolute Auto 0.1 X10*3/uL (0.0-0.2); Basophils Percent Auto 0.8 % (0-2); Eosinophils Absolute Auto 0.2 X10*3/uL (0.0-0.4); Eosinophils Percent Auto 3.5 % (0-4); Hematocrit 38.8 % (37.0-47.0); Hemoglobin 12.8 g/dl (12.0-16.0); Imm Gran Abs Auto 0.01 X10*3/uL (0.00-0.03); Imm Gran Pct Auto 0.2 % (0.0-0.4); Lymphocytes Absolute Auto 2.7 X10*3/uL (1.2-4.9); Lymphocytes Percent Auto 42.2 % (20-40); Mean Corpuscular Hemoglobin 28.6 pg (27.0-33.0); Mean Corpuscular Volume 86.6 fL (80.0-98.0); Mean Platelet Volume 10.8 fL (9.4-12.3); Monocytes Absolute Auto 0.7 X10*3/uL (0.1-1.2); Monocytes Percent Auto 11.4 % (2-11); Neutrophils Absolute Auto 2.7 x10*3/uL (2.0-8.3); Neutrophils Percent Auto 41.9 % (45-73); Platelet Count 173 X10*3/uL (160-400); Red Blood Count 4.48 X10*6/uL (4.20-5.50); Red Cell Distribution Width 13.8 % (11.0-16.0); White Blood Count 6.3 X10*3/uL (4.8-10.8)
[2024-08-07 12:12] LABS: Alanine Aminotransferase 16 U/L (0-31); Albumin Level 3.9 g/dL (3.5-5.0); Alkaline Phosphatase 54 U/L (39-117); Anion Gap 10 (12-20); Aspartate Amino Transferase 22 U/L (5-31); Bilirubin Total 0.6 mg/dL (0.0-1.0); Blood Urea Nitrogen 9 mg/dL (9-16); Calcium 9.2 mg/dL (8.4-10.2); Carbon Dioxide 30 mmol/L (22-29); Chloride 108 mmol/L (96-108); Cholesterol 133 mg/dL (<200); Estimated Glomerular Filt Rate > 60; Glucose Random 127 mg/dL (60-115); HDL Cholesterol 50 mg/dL (>40); LDL Cholesterol Calculated 68 mg/dL (<100); Sodium 144 mmol/L (135-145); Total Protein 7.1 g/dL (6.5-8.0); Triglycerides 79 mg/dL (<150)
[2024-08-07 12:16] LABS: Creatinine Urine 124.27 mg/dL; Microalbum/Creatinine Ratio Ur 11.2 ug/mg cr (<30)
== END 2024-08-07 07:57 | disposition home or self-care (01) ==
LOC: HO.HHCL 07:56
PROVIDERS: Visit Provider Internal Medicine Geriatric Medicine
DX: E11.65 Type 2 diabetes mellitus with hyperglycemia (principal); R26.89 Other abnormalities of gait and mobility
CPT/HCPCS: 36415; 80053; 80061; 82043; 82570; 85025

== ENCOUNTER 2024-10-25 09:56 | Outpatient (AMB) | payer MEDICARE, MEDICAID, SELFPAY ==
--- NOTE | 2024-10-25 10:02 | A.OFFVIS_ITS ---
Vital Signs 10/25/24 10:16 Height 4 ft 11 in Weight 160 lb BMI 32.3 BP 138/74 Blood Pressure Location Lt brachial Position Sitting Pulse 74 Pulse Source Pulse Oximeter Pulse Oximetry (%) 98 Oxygen Delivery Method Room Air Intake Visit Reasons: colo screening Intake Note: NEW PATIENT for colo screening, recall. Last done 2013 via [facility]. 5 year recall not done. GERD mgmt. See referral for colo report. CC; Pt denies any GI sx or concerns at this time. GERD is well managed with omeprazole. Pt reports her colo was not done via [facility] due to scheduling conflicts? Winder Contort Operator Required: Yes Winder Contort Operator Services: Winder Contort Operator Offered & Declined Accompanied by: Family/Other Allergies No Known Allergies Allergy (Verified 12/22/21 10:42) HPI HPI colo screening: Details: 73 year old? female with past medical history of diabetes, GERD, osteoarthritis, osteopenia, hypertension, hyperlipidemia is here today for pre colonoscopy screening.? Patient was sent to us by her PCP.? Patient had normal colonoscopy in 2013.? Patient denies any gastrointestinal symptoms in the past or at present.? However patient is taking omeprazole daily. Patient reports that she is taking that for a long time. History of diabetes. On metformin. Patient reports occasional acid reflux specially when she forgets the medication. Denies any personal or family history of gastrointestinal disease, colon polyps, or CRC.? Denies history of difficulty with sedation or anesthesia in the past.? Negative for history of sleep apnea.? Denies any history of cardiac, renal, pulmonary, or hepatic disease.?? No history of infectious? diseases like hepatitis A, B, C, HIV or tuberculosis.? Patient is not on any anticoagulation [facility] Medical History Hyperlipidemia Diabetes Surgical History History of knee replacement Family History Mother Hypertension Father Lung cancer Social History Alcohol intake: never Patient Tobacco Use Status: Never used Tobacco Review of Systems Const Denies weight gain and Denies weight loss ENT Reports no additional complaints, Denies dysphagia and Denies odynophagia Card Reports no additional complaints Resp Reports no additional complaints GI Denies abdominal pain, Denies belching, Denies melena, Denies bloating, Denies change in bowel habits, Denies dysphagia, Denies excessive flatus, Denies dyspepsia, Reports heartburn (Occasional), Denies diarrhea, Denies loose stools, Denies nausea, Denies odynophagia and Denies vomiting Reports no additional complaints Musc Reports no additional complaints Neuro Reports no additional complaints Psych Reports no additional complaints Endo Reports no additional complaints Physical Exam Vital Signs: Last Vital Signs Pulse 74 10/25/24 10:16 BP 138/74 10/25/24 10:16 Pulse Ox 98 10/25/24 10:16 Oxygen Delivery Method Room Air 10/25/24 10:16 BMI result Body Mass Index 32.3 Const General: healthy appearing, no acute distress and well developed Nutritional Appearance: well nourished and obese Orientation/consciousness: patient oriented x3 Resp Effort & Inspection: normal respiratory effort, able to speak in complete sentences, no tracheal deviation and symmetric chest movement Auscultation: clear to auscultation bilaterally Cardio Rate: regular rate GI Inspection: Yes normal to inspection, No distended and Yes obesity Palpation (GI): Soft to palpation, not firm, nontender and No hepatosplenomegaly present Auscultation: normal bowel sounds General: Yes no CVA tenderness Back/Spine/Pelvis Back: no CVA tenderness Skin General skin exam: elasticity normal, turgor normal and dry skin Neuro General: patient oriented x3 Psych Appearance: grossly normal Mental Status: mental status grossly normal Assessment & Plan Assessment & Plan (1) GERD (gastroesophageal reflux disease): Code(s): K21.9 - Gastro-esophageal reflux disease without esophagitis Category: Medical Qualifiers: Esophagitis presence: esophagitis presence not specified Qualified Code(s): K21.9 - Gastro-esophageal reflux disease without esophagitis (2) Screen for colon cancer: Code(s): Z12.11 - Encounter for screening for malignant neoplasm of colon Plan Patient denies any cardiac or respiratory symptoms.? Patient reports occasional acid reflux. She will be sent for upper endoscopy. Long history of PPI treatment. Patient also is diabetic and has occasional symptoms. Denies any issues with anesthesia in the past.? Denies any history of sleep apnea.? No h istory infectious diseases in the past or present.? Not on any anticoagulation therapy.? No family or personal history of colon cancer or polyps.? Patient denies melena, hematochezia, unintentional weight loss or ribbon like stools.? Discussed at length the pre-procedure,? prep, diet & medications as well as what to expect prior, during and after the procedure.?? Stressed the importance of good bowel prep.? Recommended the use of Vaseline or Calmoseptine OTC & baby wipes with bowel movements to promote comfort.? ?Patient verbalizes understanding and agrees to plan of care.? She was given the opportunity to ask questions and all questions answered.? We will see her after the procedure.? Medications: New polyethylene glycol 3350 (Miralax) As directed by gastroenterology department at [facility] 238 grams PO ONCE 238 grams 0RF Z12.11 - Encounter for screening for malignant neoplasm of colon bisacodyl (Dulcolax (bisacodyl)) take 4 tabs at noon the day before your colonoscopy 20 mg (4 x 5 mg) PO ONCE 1 day 4 tabs 0RF constipation Z12.11 - Encounter for screening for malignant neoplasm of colon Coding Level of Care Code New Pt Level 3 (04252) Diagnoses Gastroesophageal reflux disease, unspecified whether esophagitis present K21.9 Esophagitis presence: esophagitis presence not specified Screen for colon cancer Z12.11 Time Spent (min) 40 Comment 30 minutes spent with patient and additional 10 minutes spent reviewing her records
--- OUTSIDE RECORDS SUMMARY | 2024-10-25 10:11 | XMS_ITS | Clinical Summary ---
Author Organization [employer] Address [address] [facility] [address] [place] [address] Care Team Providers Care Technician Anatomic Pathology Name Role Phone Name, Ej GRAY Primary Care Provider [phone] Allergies No known active allergies Medications Eliquis 5 MG tablet Take 5 mg by mouth. 05/28/20 24 Active Toprol XL 50 MG 24 hr tablet Take 50 mg by mouth. 05/28/20 24 Active cholecalcifero l (Vitamin D-3) 50 MCG (1999) tablet Take 1 tablet by mouth 1 (one) time each day. 30 tablet 2 05/30/20 24 Active atorvastatin (Lipitor) 20 MG tabletIndicati ons:Hyperchole sterolemia TAKE 1 TABLET BY MOUTH EVERY DAY 90 tablet 1 06/25/19 25 Active valsartan (Diovan) 40 MG tabletIndicati ons:Hyperchole sterolemia TAKE 1 TABLET BY MOUTH EVERY DAY 90 tablet 1 06/25/19 25 Active omeprazole (PriLOSEC) [address] capsuleIndicat ions:Hyperchol esterolemia TAKE 1 CAPSULE BY MOUTH EVERY DAY 30 MINUTES TO 1 HOUR BEFORE A MEAL 90 capsule 1 06/25/19 25 Active metFORMIN (Glucophage) 1000 MG tablet TAKE 1 TABLET BY MOUTH TWICE A DAY WITH BREAKFAST AND DINNER 180 tablet 1 10/04/19 25 Active metFORMIN (Glucophage) 1000 MG tablet TAKE 1 TABLET BY MOUTH TWICE A DAY WITH BREAKFAST AND DINNER 180 tablet 1 03/21/20 24 025 Discontinued Active Problems Problem Noted Date Diagnosed Date Atrial fibrillation 07/31/2024 Osteopenia 05/27/2022 Vitamin D deficiency 05/27/2022 Knee joint replacement status 02/17/2014 Hypertension 06/10/2011 Colon polyp 06/10/2011 Low back pain radiating to left leg 09/11/2009 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 Hyperlipidemia 08/29/2008 Type 2 diabetes mellitus 08/29/2008 Encounters Date Type Department Care Team Description 10/24/2024 Refill [facility] [address] [place] [address] NameEj MD Hypercholesterolemia 10/23/2024 Telephone [facility] [address] [place] [address] Monika Mathews MA R/s appiontment 10/22/2024 Telephone [facility] [address] [place] [address] NameEj MD Appointment Request 10/03/2024 Refill [facility] [address] [place] [address] Ej Ulloa MD 08/22/2024 Telephone [facility] [address] [place] [phone] Ej Ulloa MD Nurse Triage 07/31/2024 11:30 AM EST Office Visit [facility] [address] [place] [address] Name, MD Ej Type 2 diabetes mellitus with hyperglycemia, without long-term current use of insulin ([facility]) (Primary Dx); Balance problem; Screen for colon cancer; Atrial fibrillation, unspecified type ([facility]) from Last 3 Months Immunizations Immunization Administration Dates Next Due Influenza High-dose Quadriva lent Preservative Free 03/14/2023,04/30/2021,03/01/2018 Influenza injectable quadriv alent IIV4 with preservative 03/01/2016 Influenza, High Dose Seasona l, Preservative Free 02/20/2024,03/01/2018 Influenza, IIV3, injectable 05/19/2014,0 06/17/2013,05/04/2012,03/04,02/20/2009 Influenza, Unspecified 03/01/2018 Influenza, seasonal, injecta ble, preservative free 05/19/2014,06/17/2013,05/04/2012,03/04,02/20/2009 Novel [id number], preservative-free 06/12/2009 Pneumococcal Conjugate PCV 13 06/12/2017, [...] the past 12 months, has t he [employer], gas, oil or water company threatened to [...] Care Team (Late st Contact Info) Description 12/24/2024 11:30 AM EDT Office Visit [facility] [address] [place], [place] [phone] Nila Anand NP [address] [place], [place] [phone] Health Maintenance Due Date Last Done Comments [...] ( season) 2024 04/30/2021, 08/28/2020, 07/31/2020 Diabetes: Hemoglobin A1C 10/28/2024 025, 02/20/2024, 10/19/2023, Additional history exists Mammogram 04/10/2025 04/10/2024, 03/07, 04/04/2023, Additional history exists Alcohol/Substance Use Screening 07/31/2025 07/31/2024 Depression Screening 07/31/2025 07/31/2024, 07/31/19 Diabetes: Foot Exam 07/31/2025 07/31/2024, 07/31/2024, 07/31/2024, Additional history exists SDOH Screening 07/31/2025 07/31/2024 Tobacco Screening 07/31/2025 07/31/2024 Diabetes: Urine Protein Screening 08/07/2025 08/07/2024, 07/14/2023, 06/16/2022, Additional history exists Lipid Panel 08/07/2025 08/07/2024, 12/2023, 06/16/2022, Additional history exists Eye Exam 10/14/2026 10/14/2024, 10/11/2023 DTaP/Tdap/Td Vaccines (3 - Td or [...] age to complete this topic Meningococcal B Vaccine Aged Out No l onger eligible based on patient's age to complete [...] Procedure Name Priority Date/Time Associated Diagnosis Comments ALBUMIN, RANDOM URINE W/CREATININE Routine 08/07/2024 7:58 AM EST Type 2 diabetes mellitus with hyperglycemia, without long-term current use of insulin ([facility]) Balance problem LIPID PANEL, STANDARD Routine 08/07/2024 7:58 AM EST Type 2 diabetes mellitus with hyperglycemia, without long-term current use of insulin ([facility]) Balance problem COMPREHENSIVE METABOLIC PANEL Routine 08/07/2024 7:58 AM EST Type 2 diabetes mellitus with hyperglycemia, without long-term current use of insulin ([facility]) Balance problem CBC WITH AUTO DIFFERENTIAL Routine 08/07/2024 7:58 AM EST Type 2 diabetes mellitus with hyperglycemia, without long-term current use of insulin ([facility]) Balance problem POCT GLYCATED HEMOGLOBIN, TOTAL Routine 07/31/2024 11:50 AM EST Type 2 diabetes mellitus with hyperglycemia, without long-term current use of insulin ([facility]) POCT GLUCOSE Routine 07/31/2024 11:48 AM EST Type 2 diabetes mellitus with hyperglycemia, without long-term current use of insulin ([facility]) BI MAMMOGRAM SCREENING TOMOSYNTHESIS BILATERAL Routine 04/10/2024 11:07 AM EST DIABETES EYE EXAM Routine 10/11/2023 COLONOSCOPY Routine 06/18/2013 from Last 3 Months or Most Recently Relevant to Health Maintenance Results * Albumin, Random Urine W/Creatinine (08/07/2024 7:58 AM EST) Creatinine, Urine 124.27 mg/dL [facility] Microalbumin Urine 14.0 mg/L [facility] Microalbum Creatinine Ratio Ur 11.2 <30 ug/mg cr [facility] Comment:Albumin/Creatinine R atio Reference Ranges: Normal: < 30 ug/mg creatinine Microalbuminuria: 30 - 300 ug/mg creatinineClinical Albuminuria: > 300 ug/mg creatinine Urine (Urine, Random) 08/07/2024 7:58 AM EST 08/07/2024 11:25 AM EST us Ej Name LAB URINE ORDERABLES Final Resul t [facility] [address] [place], [place] [phone] * (ABNORMAL) CBC auto differential (08/07/2024 7:58 AM EST) White Blood Count 6.3 4.8 - 10.8 X10*3/uL [facility] Red Blood Count 4.48 4.20 - 5.50 X10*6/uL [facility] Hemoglobin 12.8 12.0 - 16.0 g/dl [facility] Hematocrit 38.8 37.0 - 47.0 % [facility] Mean Corpuscular Volume 86.6 80.0 - 98.0 fL [facility] Mean Corpuscular Hemoglobin 28.6 27.0 - 33.0 pg [facility] Mean Corpuscular HGB Conc 33.0 31.0 - 35.0 g/dl [facility] Red Cell Distribution Width 13.8 11.0 - 16.0 % [facility] Platelet Count 173 160 - 400 X10*3/uL [facility] Mean Platelet Volume 10.8 9.4 - 12.3 fL [facility] Neutrophils Percent Auto 41.9(L) 45 - 73 % [facility] Imm Gran Pct Auto 0.2 0.0 - 0.4 % [facility] Lymphocytes Percent Auto 42.2(H) 20 - 40 % [facility] Monocytes Percent Auto 11.4(H) 2 - 11 % [facility] Eosinophils Percent Auto 3.5 0 - 4 % [facility] Basophils Percent Auto 0.8 0 - 2 % [facility] NRBC Pct Auto 0.0 0.0 - 0.2 /100WBC [facility] Neutrophils Absolute Auto 2.7 2.0 - 8.3 x10*3/uL [facility] Imm Gran Abs Auto 0.01 0.00 - 0.03 X10*3/uL [facility] Lymphocytes Absolute Auto 2.7 1.2 - 4.9 X10*3/uL [facility] Monocytes Absolute Auto 0.7 0.1 - 1.2 X10*3/uL [facility] Eosinophils Absolute Auto 0.2 0.0 - 0.4 X10*3/uL [facility] Basophils Absolute Auto 0.1 0.0 - 0.2 X10*3/uL [facility] NRBC Abs Auto 0.000 0.0 - 0.012 X10*3/uL [facility] Blood Venous blood specimen / Unknown 08/07/2024 7:58 AM EST 08/07/2024 11:30 AM EST us Ej Ulloa MD LAB BLOOD ORDERABLES Final Resul t [facility] [address] [place] [phone] * Lipid Panel, Standard (08/07/2024 7:58 AM EST) Triglycerides 79 <150 mg/dL [facility] Comment:Desirable Triglyceri de: less than 150 mg/dLBorderline High Triglyceride 150-199 mg/dLHigh Triglyceride: 200-499 mg/dLVery High Triglyceride: greater than or equal to 5OO mg/dL Cholesterol 133 <200 mg/dL [facility] Comment:Desirable Cholestero l: less than 200 mg/dLBorderline High Cholesterol: 200-239 mg/dLHigh Cholesterol: greater than 239 mg/dL LDL Cholesterol Calculated 68 <100 mg/dL [facility] Comment:Desirable LDL: less than 100 mg/dLNear Optimal/Above Optimal LDL: 110- 129 mg/dLBorderline High LDL: 130-159 mg/dLHigh LDL: 160-189 mg/dLVery High LDL: greater than or equal to 190 mg/dL HDL Cholesterol 50 >40 mg/dL [facility] Comment:Desirable HDL: great er than 40 mg/dL Note: This HDL assay may give artificially low results in patients with liver disease. Blood Venous blood specimen / Unknown 08/07/2024 7:58 AM EST 08/07/2024 11:30 AM EST us Ej Ulloa MD LAB BLOOD ORDERABLES Final Resul t Performing Organization Address City/[facility]/ZIP Co de Phone Number [facility] [address] [place] [phone] * (ABNORMAL) Comprehensive Metabolic Panel (08/07/2024 7:58 AM EST) Sodium 144 135 - 145 mmol/L [facility] Potassium 4.0 3.3 - 5.1 mmol/L [facility] Chloride 108 96 - 108 mmol/L [facility] Carbon Dioxide 30(H) 22 - 29 mmol/L [facility] Anion Gap 10(L) 12 - 20 [facility] Urea Nitrogen (BUN) 9 9 - 16 mg/dL [facility] Creatinine, Serum 0.72 0.5 - 1.4 mg/dL [facility] Estimated Glomerular Filt Rate >60 [facility] Comment:Chronic Kidney Disea se: Estimated GFR < 60 mL/min/1.65c2Hfdpdo Kidney Disease: Estimated GFR < 15 mL/min/1.73m2 Glucose 127(H) 60 - 115 mg/dL [facility] Calcium 9.2 8.4 - 10.2 mg/dL [facility] Bilirubin, Total 0.6 0.0 - 1.0 mg/dL [facility] Aspartate Amino Transferase 22 5 - 31 U/L [facility] Alanine Aminotransferase 16 0 - 31 U/L [facility] Total Protein 7.1 6.5 - 8.0 g/dL [facility] Albumin Level 3.9 3.5 - 5.0 g/dL [facility] Alkaline Phosphatase 54 39 - 117 U/L [facility] Blood Venous blood specimen / Unknown 08/07/2024 7:58 AM EST 08/07/2024 11:30 AM EST us Ej Ulloa MD LAB BLOOD ORDERABLES Final Resul t [facility] [address] [place] [address] [phone] * (ABNORMAL) POCT HGB A1C (07/31/2024 11:50 AM EST) Pathologist [facility] Hemoglobin A1C 7.6(A) 4.0 - 6.0 % QC Media Lot # [id number] Lot# Expiration Date [id number] Blood 07/31/2024 11:5 0 AM EST Ej Name POINT OF CARE TEST ENTER/EDIT OR DERABLES Final Result * (ABNORMAL) POCT Glucose (07/31/2024 11:48 AM EST) Pathologist [facility] Glucose Blood, POC 216(A) 60 - 200 mg/dL QC Media Lot # [id number] Lot# Expiration Date [id number] Blood Capillary blood specimen / Unknown 07/31/2024 11:48 AM EST Ej Name POINT OF CARE TEST ENTER/EDIT OR DERABLES Final Result * BI Mammogram Screening Tomosynthesis Bilateral (04/10/2024 11:07 AM EST) Anatomical Region Laterality Modality Breast Bilateral Mammography 04/10/2024 11:0 7 AM EST Narrative 04/19/2024 1:43 PM EST ? [facility] [place] ? [address] ?[place] [address] ? Mammography Report ? Signed ? Patient: Galindo,Eliz ?MR#: [id number] ?? [id number] ? : 1950 ?Acct:[id number] ? Age/Sex: 73 / F ?ADM Date: 11/06/24 ? Loc: HO.MAMMO ? Attending Dr: Ej Ulloa MD ? Ordering Physician: Ej Ulloa MD ?Results: 1Negative ? Date of Service: 04/10/24 ?Follow Up: 1 Year From Orig ?? inal Mammogram ? Procedure(s): MM tomosynthesis screening BI ?? Accession Number(s): [id number] ? cc: Artemio,Ej GRAY ? EXAMINATION: ?? MM SCREENING DIGITAL [...] DD/ 1107 ? TD/TT: 04/10/24 1130 ? Machine Shorthand Teacher: ? Procedure Note Donotuseinterpreter, Image - [facility] [address] [place], [place] [address] Mammography Report Signed Patient: Dorcas Medley LMR#: [id number] : 1950cct:[id number] Age/Sex: 73 / FADM Date: 04/10/24 Loc: HO.MAMMO Attending Dr: Ej Ulloa MD Ordering Physician: Ej Ulloa MDResults: 1Negative Date of Service: 04/10/24Follow Up: 1 Year From Orig inal Mammogram Procedure(s): MM tomosynthesis screening BI Accession Number(s): [id number] cc: Ej Ulloa MD EXAMINATION: MM SCREENING [...] Asha Boone DO 04/19/2024 01:40 PM EST Dictated By: Asha Boone DO Signed By: <Electronically signed by Asha Boone DO in OV> 04/19/24 1340 DD/ 1107 TD/TT: 04/10/24 1130 Machine Shorthand Teacher: us Ej Name IMG BI PROCEDURES Final Result * Diabetes Eye Exam (10/11/2023) Eye Exam Normal Normal Ej Name HEALTH MAINTENANCE Final Result * Colonoscopy (06/18/2013) Colonoscopy Normal Normal Narrative Ellyn Alonso - 06/18/2013 Repeat in 5 years [facility] Provider HEALTH MAINTENANCE Final Result from Last 3 Months or Most Recently Relevant to Health Maintenance Insurance [facility] MEDICARE ADVANTAGE HMO [facility] Care Teams Technician Anatomic Pathology Relationship Specialty Start Date End Date Name, MD Ej [address] [place] [phone] PCP - General Family Medicine 06/24/15
[2024-10-25 10:16] VITALS: BP 138/74; PULSE 74; O2SAT 98; BMI 32.3
== END 2024-10-25 10:54 | disposition home or self-care (01) ==
PROVIDERS: PCP Internal Medicine Geriatric Medicine; Visit Provider Nurse Practitioner Family
DX: Z12.11 Encounter for screening for malignant neoplasm of colon (principal); K21.9 Gastro-esophageal reflux disease without esophagitis
CPT/HCPCS: 99024

== ENCOUNTER → 2024-10-25 09:56 | Outpatient (BNVA) | payer MEDICARE, SELFPAY | PROVIDERS: PCP Internal Medicine Geriatric Medicine; Visit Provider Nurse Practitioner Family | DX: Z12.11 Encounter for screening for malignant neoplasm of colon (principal); K21.9 Gastro-esophageal reflux disease without esophagitis | CPT/HCPCS: 99212 ==

== ENCOUNTER → 2025-03-13 09:47 | Outpatient (REF) | payer OTHER, SELFPAY ==
--- NOTE | 2025-03-13 09:53 | HM_ITS ---
Conclusion: 1. Patient was monitored for total period of 2 days 2. Baseline was normal sinus rhythm with average heart of 75 beats per minute 3. Multiple short bursts of SVTs noted, longest lasting 45 seconds with the fastest heart rate of 174 beats per minute 4. Rare PACs and PVCs noted 5. No significant pauses noted 6. No patient reported events MTDD
== END ==
LOC: HO.CARD 09:47
PROVIDERS: Visit Provider Internal Medicine Geriatric Medicine
DX: I48.91 Unspecified atrial fibrillation (principal)
CPT/HCPCS: 93225

== ENCOUNTER → 2025-03-13 09:53 | Outpatient (BNV) | payer OTHER, SELFPAY | PROVIDERS: Visit Provider Internal Medicine Cardiovascular Disease | DX: I47.10 Supraventricular tachycardia, unspecified (principal); I49.1 Atrial premature depolarization; I49.3 Ventricular premature depolarization | CPT/HCPCS: 93227 ==

== ENCOUNTER 2025-05-31 10:27 | Outpatient (REF) | payer OTHER, SELFPAY ==
--- NOTE | ~2025-05-31 | MM_ITS ---
EXAMINATION: MM SCREENING DIGITAL BREAST TOMOSYNTHESIS, BILATERAL CLINICAL INFORMATION: Screening. Asymptomatic. COMPARISON: Mammography: Comparison is made with available priors TECHNIQUE: Digital breast mammography with tomosynthesis is performed in both the craniocaudal and mediolateral oblique views along with computer-aided detection (CAD). FINDINGS: There are scattered areas of fibroglandular density. There are no significant masses, abnormal calcifications, or other abnormalities. MM/MM tomosynthesis screening BI IMPRESSION: No mammographic evidence of malignancy. ASSESSMENT: BI-RADS Category 1: Negative RECOMMENDATION: Routine annual mammography screening. 1 year F/U This examination should not preclude the clinical evaluation of a suspicious palpable abnormality. This patient's information was entered into a reminder system with a target due date for their next mammogram. Electronically signed by: Asha Boone DO 06/03/2025 04:24 PM [facility]
--- OUTSIDE RECORDS SUMMARY | 2025-05-31 10:30 | XMS_ITS | Encounter Summary ---
Author Organization [employer] Address [address] [facility] [address] [place] [address] Care Team Providers Care Slitter Creaser Slotter Helper Name Role Phone Name, Ej GRAY Primary Care Provider Encounter Details Date Type Department Care Team ([facility] st Contact Info) Description 04/22/2025 Telephone [facility] [address] [place] [address] Name, MD Ej [address] [place] [address] Social History Tobacco Use Types Packs/Day Years [...] encounter Miscellaneous Notes * Telephone Encounter - Franky Pool - 04/22/2025 9:02 AM EST Tc from pt daughter requesting information on apt ,junior underwriter advised she is not on HIPAA . Pt daughtervery upset and stated she will contact provider documented in this encounter Plan of Treatment Not on file documented as of this encounter Goals Goal Patient Goal Type Associated Problems Recent Progress Patient-Stated? Author Help patients manage their type 2 diabetes Care Plan Help patients manage their type 2 diabetes Franky Meng Weekly blood pressure task Care Plan Weekly blood pressure task No Franky Kamara Help patients manage their type 2 diabetes Care Plan Help patients manage their type 2 diabetes Franky Meng Patient has chronic kidney disease Care Plan Patient has chronic kidney disease Franky Meng Weekly blood pressure task Care Plan Weekly blood pressure task Franky Meng Patient has chronic kidney disease Care Plan Patient has chronic kidney disease Franky Meng documented as of this encounter Visit Diagnoses Not on filedocumented in this encounter Additional Health Concerns Active Problems Noted Date Diagnosed Date Help patients manage their type 2 diabetes 04/22 Weekly blood pressure task 04/22/2025 Help patients manage their type 2 diabetes 04/22 Patient has chronic kidney disease 04/22/2025 Weekly blood pressure task 04/22/2025 Patient has chronic kidney disease 04/22/2025 Assessment Noted Time PHQ-9 Depression Total Score: 1 07/31/19 25 11:53 AM EST documented as of this encounter Care Teams Slitter Creaser Slotter Helper Relationship Specialty Start Date End Date Name, MD Ej [address] [place] [address] PCP - General Family Medicine 06/24/15 documented as of this encounter
--- OUTSIDE RECORDS SUMMARY | 2025-05-31 10:30 | XMS_ITS | Clinical Summary ---
Author Organization [employer] Address [address] [facility] 7[address] [place] [address] Care Team Providers Care Terminal Clerk Name Role Phone Name, Ej GRAY Primary Care Provider [phone] Allergies No known active allergies Medications cholecalciferol (Vitamin D-3) 50 MCG (1999) tablet Take 1 tablet by mouth 1 (one) time each day. 30 tablet 2 05/30/20 Active b complex vitamins capsule Take 1 capsule by mouth Once per day. 30 capsule 11 03/06/20 25 Active FREESTYLE LITE test strip Use to test blood sugar 1 times daily 100 each 12 03/06/20 25 Active Lancets misc Use to test blood sugar 1 times daily 100 each 03/06/20 25 Active Alcohol Swabs 70 % pads Use to test blood sugar 1 times daily 100 each 03/06/20 25 Active Blood Glucose Monitoring Suppl (FreeStyle [place]ite) w/Device kit Use to test blood sugar 1 times daily 1 kit 03/06/20 Active Eliquis 5 MG tablet Take 1 tablet (5 mg) by mouth 2 times daily. 60 tablet 11 03/07/20 25 Active Toprol XL 50 MG 24 hr tablet Take 1 tablet (50 mg) by mouth Once per day. 30 tablet 11 03/07/20 25 Active metoprolol succinate XL (Toprol XL) 50 MG 24 hr tabletIndicatio ns:Hypertension , unspecified type Take 1 tablet (50 mg) by mouth Once per day. Do not crush or chew. 30 tablet 11 03/24/20 25 10/20/2 026 Active atorvastatin (Lipitor) 20 MG tabletIndicatio ns:Hypercholest erolemia TAKE 1 TABLET BY MOUTH EVERY DAY 90 tablet 1 04/23/20 25 Active valsartan (Diovan) 40 MG tabletIndicatio ns:Hypercholest erolemia Take 1 tablet (40 mg) by mouth Once per day. 90 tablet 1 05/05/20 25 Active omeprazole (PriLOSEC) [address] capsuleIndicati ons:Hypercholes terolemia TAKE 1 CAPSULE BY MOUTH EVERYDAY 30 MINUTES TO 1 HOUR BEFORE A MEAL DO NOT CRUSH OR CHEW 90 capsule 05/07/20 25 Active metFORMIN (Glucophage) 1000 MG tablet TAKE 1 TABLET BY MOUTH TWICE DAILY WITH BREAKFAST AND DINNER 180 tablet 1 05/19/20 25 Active valsartan (Diovan) 40 MG tabletIndicatio ns:Hypercholest erolemia TAKE 1 TABLET BY MOUTH EVERY DAY 90 tablet 1 06/25/19 25 025 Discontinued(Re order (will not trigger notification to Pharmacy)) metFORMIN (Glucophage) 1000 MG tablet TAKE 1 TABLET BY MOUTH TWICE A DAY WITH BREAKFAST AND DINNER 180 tablet 1 10/04/19 25 025 Discontinued omeprazole (PriLOSEC) [address] capsuleIndicati ons:Hypercholes terolemia Do not crush or chew.TAKE 1 CAPSULE BY MOUTH EVERY DAY 30 MINUTES TO 1 HOUR BEFORE A MEALTAKE 1 CAPSULE BY MOUTH EVERY DAY 30 MINUTES TO 1 HOUR BEFORE A MEAL 90 capsule 1 11/12/19 25 025 Discontinued Active Problems Problem Noted Date Diagnosed Date Stress incontinence of urine 03/07/2025 Overview (03/07/2025): I will order the [employer] supplies she requested Atrial fibrillation ([facility]) 07/31/2024 Osteopenia 05/27/2022 Vitamin D deficiency 05/27/2022 Knee joint replacement status 02/17/2014 Hypertension 06/10/2011 Colon polyp 06/10/2011 Low back pain radiating to left leg 09/11/2009 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 Hyperlipidemia 08/29/2008 Type 2 diabetes mellitus 08/29/2008 Encounters Date Type Department Care Team Description 05/19/2025 Refill [facility] [address] [place] [address] Ej Ulloa MD 05/07/2025 Refill [facility] [address] [place] [address] Germania Mcnamara MD Hypercholesterolemia 05/05/2025 Refill [facility] [address] [place] [address] Ej Ulloa MD Hypercholesterolemia 04/23/2025 Refill [facility] [address] [place] [address] Ej Ulloa MD Hypercholesterolemia 04/22/2025 Telephone [facility] [address] [place] [address] Ej Ulloa MD 04/11/2025 11:30 AM EST Telemedicine [facility] [address] [place] [address] Ej Ulloa MD PAF (paroxysmal atrial fibrillation) (HCC) (Primary Dx) 04/11/2025 Travel 03/31/2025 Telephone [facility] [address] [place] [address] Ej Ulloa MD Medication Question 03/24/2025 Telephone [facility] [address] [place] [address] Ej Ulloa MD Medication Question 03/14/2025 10:30 AM EDT Clinical Support [facility] [place] [address] Denise Moreland, JONI Hypertension, unspecified type 03/14/2025 Telephone [facility] [address] [place] [address] Ej Ulloa MD Appointment 03/14/2025 Travel 03/07/2025 Telephone [facility] [address] [place] [address] Sherie Silva MA 03/07/2025 Telephone [facility] [address] [place] [address] Sherie Silva MA Durable Medical Equipment 03/07/2025 Telephone [facility] [address] [place] [address] Sherie Silva MA Durable Medical Equipment 03/06/2025 10:30 AM EDT Office Visit [facility] [address] [place] [address] Name, MD Ej Controlled type 2 diabetes mellitus (HCC) (Primary Dx); Atrial fibrillation, unspecified type (CMS/HCC) (HCC); Hypertension, unspecified type; Nocturnal leg cramps; Stress incontinence of urine; Status post knee replacement, unspecified laterality; Encounter for immunization 03/06/2025 Travel from Last 3 Months Immunizations Immunization Administration Dates Next Due Influenza High-dose Quadriva lent Preservative Free 03/14/2023,04/30/2021,03/01/2018 Influenza injectable quadriv alent IIV4 with preservative 03/01/2016 Influenza, High Dose Seasona l, Preservative Free 03/06/2025,02/20/2024,03/01/2018 Influenza, IIV3, injectable 05/19/2014,0 06/17/2013,05/04/2012,03/04,02/20/2009 Influenza, Unspecified 03/01/2018 Influenza, seasonal, injecta ble, preservative free 05/19/2014,06/17/2013,05/04/2012,03/04,02/20/2009 Novel [id number], preservative-free 06/12/2009 Pneumococcal Conjugate PCV 13 06/12/2017, [...] Sign Reading Time Taken Comments Blood Pressure 130/72 03/14/2025 10:51 AM EDT Pulse 77 03/14/2025 10:50 AM EDT Temperature 36.4 C (97.5 F) 03/14/2025 10:50 AM EDT Respiratory Rate 16 03/14/2025 10:50 AM EDT Oxygen Saturation 98% 03/14/2025 10:50 AM EDT Inhaled Oxygen Concentration - - Weight 67.6 kg (149 lb) 03/14/2025 10:50 AM EDT Height 152.4 cm (5') 03/06/2025 10:25 AM EDT Body Mass Index 29.1 03/06/2025 10:25 AM EDT Plan of Treatment Health Maintenance Due Date Last Done Comments CT Colonography 1950 FIT DNA/Cologuard 1950 FIT 1950 FOBT 1950 Sigmoidoscopy 1950 Hepatitis C Screening 1968 Zoster Vaccines (2 of 3) 12/25/2015 10/30/2015, 12/03 Colonoscopy 06/18/2018 06/18/2013 Colorectal Cancer Screening 06/18/2018 COVID-19 Vaccine ( season) 2025 04/30/2021, 08/28/2020, 07/31/2020 Mammogram 04/10/2025 04/10/2024, 03/07, 04/04/2023, Additional history exists Diabetes: Hemoglobin A1C 06/06/2025 025, 07/31/2024, 02/20/2024, Additional history exists Alcohol/Substance Use Screening 07/31/2025 07/31/2024 Depression Screening 07/31/2025 07/31/2024, 07/31/19 25 SDOH Screening 07/31/2025 07/31/2024 Diabetes: Urine Protein Screening 08/07/2025 08/07/2024, 07/14/2023, 06/16/2022, Additional history exists Lipid Panel 08/07/2025 08/07/2024, 0312/2023, 06/16/2022, Additional history exists RSV Patients and Patients Aged 60 years or older (1 - 1-dose 75+ series) 2025 Diabetes: Foot Exam 03/06/2026 03/06/2025, 03/06/2025, 03/06/2025, Additional history exists Tobacco Screening 03/06/2026 03/06/2025 Eye Exam 10/14/2026 10/14/2024, 05/0 01/2024, 11/10/2017, Additional history exists DTaP/Tdap/Td Vaccines (3 - Td or Tdap) 03/09/2031 03/09/2021, 11/21/2008 Pneumococcal Vaccine: 50+ Years Completed 07/19/2018, 06/12/2017, 11/13/2009, Additional history exists Influenza Vaccine Completed 03/06/2025, , 03/14/2023, Additional history exists HIB Vaccines Aged Out [...] on patient's age to complete this topic Goals Goal Patient Goal Type Associated Problems Recent Progress Patient-Stated? Author Help patients manage their type 2 diabetes Care Plan Help patients manage their type 2 diabetes No Franky Kamara Weekly blood pressure task Care Plan Weekly blood pressure task No Franky Kamara Help patients manage their type 2 diabetes Care Plan Help patients manage their type 2 diabetes No Franky Kamara Patient has chronic kidney disease Care Plan Patient has chronic kidney disease No Franky Kamara Weekly blood pressure task Care Plan Weekly blood pressure task No Franky Kamara Patient has chronic kidney disease Care Plan Patient has chronic kidney disease No Franky Kamara Weekly blood pressure task Care Plan Weekly blood pressure task No Adis Danielle Weekly blood pressure task Care Plan Weekly blood pressure task No Adis Danielle Patient has chronic kidney disease Care Plan Patient has chronic kidney disease No Adis Danielle Patient has chronic kidney disease Care Plan Patient has chronic kidney disease No Adis Danielle Procedures Procedure Name Priority Date/Time Associated Diagnosis Comments POCT GLYCATED HEMOGLOBIN, TOTAL Routine 03/06/2025 10:31 AM EDT Controlled type 2 diabetes mellitus (HCC) POCT GLUCOSE (CPT-00512) Routine 03/06/2025 10:26 AM EDT Controlled type 2 diabetes mellitus (HCC) ALBUMIN, RANDOM URINE W/CREATININE Routine 08/07/2024 7:58 AM EST Type 2 diabetes mellitus with hyperglycemia, without long-term current use of insulin ([facility]) Balance problem LIPID PANEL, STANDARD Routine 08/07/2024 7:58 AM EST Type 2 diabetes mellitus with hyperglycemia, without long-term current use of insulin ([facility]) Balance problem BI MAMMOGRAM SCREENING TOMOSYNTHESIS BILATERAL Routine 04/10/2024 11:07 AM EST DIABETES EYE EXAM Routine 10/11/2023 COLONOSCOPY Routine 06/18/2013 from Last 3 Months or Most Recently Relevant to Health Maintenance Results * (ABNORMAL) POCT Hgb A1c (03/06/2025 10:31 AM EDT) Hemoglobin A1C 7.0(A) 4.0 - 5.7 % QC Media Lot # [id number] Lot# Expiration Date 41,627 Blood 03/06/2025 10:3 1 AM EDT us Ej Ulloa MD POINT OF CARE TEST ENTER/EDIT OR DERABLES Final Result * POCT Glucose (03/06/2025 10:26 AM EDT) Glucose Blood, POC 133 60 - 200 mg/dL QC Media Lot # [id number] Lot# Expiration Date 31,126 Blood Capillary blood specimen / Unknown 03/06/2025 10:26 AM EDT us Ej Ulloa MD POINT OF CARE TEST ENTER/EDIT OR DERABLES Final Result * Albumin, Random Urine W/Creatinine (08/07/2024 7:58 AM EST) Creatinine, Urine 124.27 mg/dL [facility] Microalbumin Urine 14.0 mg/L [facility] Microalbum Creatinine Ratio Ur 11.2 <30 ug/mg cr [facility] Comment:Albumin/Creatinine R atio Reference Ranges: Normal: < 30 ug/mg creatinine Microalbuminuria: 30 - 300 ug/mg creatinineClinical Albuminuria: > 300 ug/mg creatinine Urine (Urine, Random) 08/07/2024 7:58 AM EST 08/07/2024 11:25 AM EST us Ej Ulloa MD LAB URINE ORDERABLES Final Resul t Performing Organization Address [facility] Co de Phone Number [facility] [address] [place] [phone] * Lipid Panel, Standard (08/07/2024 7:58 AM EST) Triglycerides 79 <150 mg/dL [facility] Comment:Desirable Triglyceri de: less than 150 mg/dLBorderline High Triglyceride 150-199 mg/dLHigh Triglyceride: 200-499 mg/dLVery High Triglyceride: greater than or equal to 5OO mg/dL Cholesterol 133 <200 mg/dL [facility] Comment:Desirable Cholestero l: less than 200 mg/dLBorderline High Cholesterol: 200-239 mg/dLHigh Cholesterol: greater than 239 mg/dL LDL Cholesterol Calculated 68 <100 mg/dL [facility] Comment:Desirable LDL: less than 100 mg/dLNear Optimal/Above Optimal LDL: 110- 129 mg/dLBorderline High LDL: 130-159 mg/dLHigh LDL: 160-189 mg/dLVery High LDL: greater than or equal to 190 mg/dL HDL Cholesterol 50 >40 mg/dL [facility] Comment:Desirable HDL: great er than 40 mg/dL Note: This HDL assay may give artificially low results in patients with liver disease. Blood Venous blood specimen / Unknown 08/07/2024 7:58 AM EST 08/07/2024 11:30 AM EST us Ej Ulloa MD LAB BLOOD ORDERABLES Final Resul t Performing Organization Address [facility] Co de Phone Number [facility] [address] [place] [phone] * BI Mammogram Screening Tomosynthesis Bilateral (04/10/2024 11:07 AM EST) Anatomical Region Laterality Modality Breast Bilateral Mammography 04/10/2024 11:0 7 AM EST Narrative 04/19/2024 1:43 PM EST [facility] [address] [place], [place] [address] Mammography Report Signed Patient: Dorcas Medley MR#: [id number] : 1950 Acct:[id number] Age/Sex: 73 / F ADM Date: 04/10/24 Loc: HO.MAMMO Attending Dr: Ej Ulloa MD Ordering Physician: Ej Ulloa MD Results: 1Negative Date of Service: 04/10/24 Follow Up: 1 Year From Orig inal Mammogram Procedure(s): MM tomosynthesis screening BI Accession Number(s): [id number] cc: Ej Ulloa MD EXAMINATION: MM SCREENING [...] 04/19/24 1340 DD/ 1107 TD/TT: 04/10/24 1130 Manager Of Production: Procedure Note Donotuseinterpreter, Image - 04/19/2024 [facility] [address] [place], [place] [address] Mammography Report Signed Patient: Dorcas Medley LMR#: [id number] : 1Acct:[id number] Age/Sex: 73 / FADM Date: 04/10/24 Loc: HO.MAMMO Attending Dr: Ej Ulloa MD Ordering Physician: Ej Ulloa MDResults: 1Negative Date of Service: 04/10/24Follow Up: 1 Year From Orig inal Mammogram Procedure(s): MM tomosynthesis screening BI Accession Number(s): [id number] cc: Ej Ulloa MD EXAMINATION: MM SCREENING [...] 04/19/24 1340 DD/ 1107 TD/TT: 04/10/24 1130 Manager Of Production: us Ej Ulloa MD IMG BI PROCEDURES Final Result * Hm Diabetes Eye Exam (10/11/2023) Eye Exam Normal Normal us Ej Ulloa MD HEALTH MAINTENANCE Final Result * Colonoscopy (06/18/2013) Colonoscopy Normal Normal Narrative Ellyn Alonso - 06/18/2013 Repeat in 5 years Historical Provider HEALTH MAINTENANCE Final Result from Last 3 Months or Most Recently Relevant to Health Maintenance Additional Health Concerns Active Problems Noted Date Diagnosed Date Help patients manage their type 2 diabetes 04/22 Weekly blood pressure task 04/22/2025 Help patients manage their type 2 diabetes 04/22 Patient has chronic kidney disease 04/22/2025 Weekly blood pressure task 04/22/2025 Patient has chronic kidney disease 04/22/2025 Weekly blood pressure task 05/05/2025 Weekly blood pressure task 05/05/2025 Patient has chronic kidney disease 05/05/2025 Patient has chronic kidney disease 05/05/[address] [place] [address] STANDARD [facility] [employer] (HMO D-SNP) Care Teams Terminal Clerk Relationship Specialty Start Date End Date Name, MD Ej [address] [place] [phone] PCP - General Family Medicine 06/24/15
--- OUTSIDE RECORDS SUMMARY | 2025-05-31 10:30 | XMS_ITS | Encounter Summary ---
Author Organization [employer] Address [address] [facility] 7[address] [place] [address] Care Team Providers Care Drawing Box Tender Name Role Phone Name, Ej GRAY Primary Care Provider [phone] Reason for Visit * Reason Comments Med Refill Encounter Details Date Type Department Care Team ([facility] Contact Info) Description 10/24/2024 Refill [facility] [address] [place], [place] [phone] Name, MD Ej [address] [place] [address] Hypercholesterolemia Social History Tobacco Use Types Packs/Day Years [...] as of this encounter Plan of Treatment Not on file documented as of this encounter Visit Diagnoses Diagnosis Hypercholesterolemia Pure hypercholesterolemia documented in this encounter Additional Health Concerns Assessment Noted Time PHQ-9 Depression Total Score: 1 07/31/19 25 11:53 AM EST documented as of this encounter Care Teams Drawing Box Tender Relationship Specialty Start Date End Date Name, MD Ej [address] [place] [address] PCP - General Family Medicine 06/24/15 documented as of this encounter
--- OUTSIDE RECORDS SUMMARY | 2025-05-31 10:31 | XMS_ITS | Clinical Summary ---
Author Organization [facility] [address] [place] [address] [place] [phone] Phone Care Team Providers Care Drafter Patent Name Role Phone Physician, No Pcp Primary Care Provider Unavaila ble Allergies No known active allergies Medications omeprazole [...] type 2) 08/29/2008 High cholesterol 08/29/2008 Immunizations Immunization Administration Dates Next Due H1N1 Inj Preservative [...] REMOVAL; COMMENT: bilateral OTHER SURGICAL HISTORY PROCEDURE: [facility] SURGICAL ARTHROSCOPY SHOULDER LMTD DBRDMT 06/06 HYSTERECTOMY PROCEDURE: HISTORICAL HYSTERECTOMY COLONOSCOPY 05/27/11 PROCEDURE: HISTORICAL COLONOSCOPY; COMMENT: 1 cm poolyp lost; tics; repeat in 6 months COLONOSCOPY 03/23/12 PROCEDURE: [facility] COLONOSCOPY STOMA DX INCLUDING COLLJ SPEC SPX; COMMENT: tics; repeat in 1 year COLONOSCOPY 06/18/13 PROCEDURE: [facility] COLONOSCOPY STOMA DX INCLUDING COLLJ SPEC SPX; [...] = 0.6 oz pur e alcohol) Comments No Sex and Gender Information Value Date Recorded Sex Assigned at Not on file Legal Sex Female 10:55 PM EST Gender Identity Not on file Sexual Orientation Not on file Obstetrics History Para Term AB IAB SAB Ectopic Multiple Livin g Live Births 5 5 5 Date Outcome GA Total Labor Labor/2nd/3rd Weight Sex Type Anes PTL Tisha A1 A5 Name Clin Term Term Term Term Term Last Filed Vital Signs Vital Sign Reading Time Taken Comments Blood Pressure 122/80 09/03/2024 11:01 AM EDT Pulse 64 09/03/2024 11:01 AM EDT Temperature - - Respiratory Rate 16 09/03/2024 11:01 AM EDT Oxygen Saturation - - Inhaled Oxygen Concentration - - Weight 68.3 kg (150 lb 9.6 oz) 09/03/2024 11:01 AM EDT Height 152.4 cm (5') 09/03/2024 11:01 AM EDT Body Mass Index 29.41 09/03/2024 11:01 AM EDT Plan of Treatment Health Maintenance Due Date Last Done Comments Diabetes: Annual Foot Exam 1960 Diabetes: Annual Retina Eye Exam 1960 Zoster Vaccines (2 of 3) 12/25/2015 10/30/2015, 12/03 Colorectal Cancer Screening: Colonoscopy 10/24/2019 10/23/2017 Breast Cancer Screening 07/09/2021 07/09/19 20, 07/07/2018, 06/27/2017 Depression Screening 06/05/2024 Diabetes: Annual Urine Albumin-Creatinine Ratio (uACR) 06/25/2024 08/11/2018 Falls Risk Assessment 06/25/2024 Medicare Annual Wellness Visit 06/25/2024 Social Influencers of Health Screening 06/25/2024 Diabetes: Blood Sugar Control Test (HGBA1C) 01/28/2025 07/31/2024, 05/04/2018 COVID-19 Vaccine ( season) 2025 04/30/2021, 08/28/2020, 07/31/2020 Influenza Vaccine (#1) 2025 , 03/14/2023, 04/30/2021, Additional history exists Diabetes: Annual GFR (Glomerular Filtration Rate) 08/07/2025 08/07/2024, 08/11/2018 Hypertension/CHF/CAD Annual BMP Blood Test 08/07/2025 08/07/2024, 08/11/2018 RSV Immunization Adult Patients (1 - 1-dose 75+ series) 2025 Osteoporosis Screening (Bone Density Screening) 06/27/2027 06/27/2017 Cholesterol Screening (Lipid Panel) 08/07/2029 08/07/2024, 08/11/2018 DTaP,Tdap,and Td Vaccines (3 - Td or Tdap) 03/09/2031 03/09/2021, 11/21/2008 Hepatitis C Screening Completed 07/11/2017 Pneumococcal Vaccine: 50+ Years Completed 07/19/2018, 06/12/2017, 11/13/2009, Additional history exists HIB Vaccines Aged Out [...] Procedure Name Priority Date/Time Associated Diagnosis Comments SIDDHARTHA SCREENING DIGITAL Routine 07/09/2019 2:40 PM EST [...] PM EST Narrative 07/09/2019 2:40 PM EST [facility] Diagnostic Imaging Department [address] [place] [address] Patient: ASA MEDLEY /Age/Sex: 1950 - 68 - F Unit#: [id number] Location/Status: [facility] CLI Mnemonic/Ordering Site: [facility] Ordering Physician: SHABNAM CARRIZALES [facility] Screening Digital - 07/09/19 - 1342 INDICATION: SCREENING COMPARISON: [place] exams of 07/07/2018, 06/27/2017, and 06/13/2015 TECHNIQUE: CC and MLO views of the breasts were obtained, using full field digital mammography with 3D tomosynthesis views in the MLO projection. Computer aided detection with the Tales2Go 7.2-H was employed. FINDINGS: The breasts are almost entirely composed of fat. No suspicious masses, suspicious microcalcifications, or areas of architectural distortion are identified. Benign-appearing breast and vascular calcification is present bilaterally. There are no secondary signs of breast malignancy. Compared to the prior exam, no adverse interval change. IMPRESSION: No specific mammographic evidence of breast malignancy. Lack of an imaging correlate should not deter or delay biopsy of a clinically significant palpable finding. BI-RADS - Category 2 - Benign finding 3342F, 7025F Annual screening mammography is recommended. Patient entered into a reminder system with a target date for the next mammogram. [id number] / [id number]) , [id number] Dictating Physician: VAL DAUGHERTY MD Electronically Signed by: VAL DAUGHERTY MD Dic Date/Time: 07/09/19 1434 Sign date/Time: 07/09/19 1440 Procedure Note Val Daugherty - 05/25/2022 [facility] Diagnostic Imaging Department [address] [place] [address] Patient: GALINDOASAKARON.O.B./Age/Sex: 1950 - 68 - F Unit#: [id number] Location/Status: [facility] Mnemonic/Ordering Site: [facility] Ordering Physician: SHABNAM CARRIZALES Siddhartha Screening Digital - 07/09/19 - 1342 INDICATION: SCREENING COMPARISON: [place] exams of 07/07/2018, 06/27/2017, and 06/13/2015 TECHNIQUE: CC and MLO views of the breasts were obtained, using full field digital mammography with 3D tomosynthesis views in the MLO projection. Computer aided detection with the Tales2Go 7.2-H was employed. FINDINGS: The breasts are [...] target date for the next mammogram. ([id number]) , [id number] Dictating Physician: VAL DAUGHERTY MD Electronically Signed by: VAL DAUGHERTY MD Dic Date/Time: 07/09/19 1433 Sign date/Time: 07/09/19 1440 Result [facility] Shabnam Carrizales OBSTETRICAL TECH IMG BI PROCEDURES Final Result * Urine Albumin Creatinine Ratio (08/11/2018) [facility] Urine Albumin Creatinine Ratio Abstracted Result [facility] HEALTH MAINTENANCE Final Result * Annual BMP Blood Test (08/11/2018) [facility] Annual BMP Blood Test Abstracted Result [facility] Final Result * Lipid panel (08/11/2018) [facility] LDL/HDL Ratio 3 0 - 4 Triglycerides 98 0 - 150 mg/dL Cholesterol 178 0 - 200 mg/dL HDL 68 >=40 mg/dL LDL Cholesterol 91 0 - 100 mg/dL Blood Venous blood specimen / Unknown Result [facility] LAB BLOOD ORDERABLES Kaylin l Result * (ABNORMAL) Hemoglobin A1c (05/04/2018) [facility] Hemoglobin A1C 7.2(A) 4.0 - 6.0 % Blood Venous blood specimen / Unknown Result [facility] LAB BLOOD ORDERABLES Kaylin l Result * Colonoscopy (10/23/2017) [facility] Colonoscopy No Interpretation , Abstracted Anatomical Region Laterality Modality Other us Historical Provider HEALTH MAINTENANCE Final Result * Hepatitis C Screening (07/11/2017) Hepatitis C Screening Abstracted us Historical Provider HEALTH MAINTENANCE Final Result * DXA [...] (World Health Organization Fracture Risk Assessment) [facility] Department of Internal Medicine recommends using [...] alternative screening schedule based on karyna Lucero., [facility] June 23, 2011 for patients with [...] years. (WorldHealth Organization Fracture Risk Assessment) [facility] Department of Internal Medicine recommendsusing National [...] FRAX. Optional alternative screening schedule based on inge Lucero al., NEJMJanuary 2011 for patients with osteopenia (based on [...] Most Recently Relevant to Health Maintenance Insurance MEDICARE [place]ICAID [place] [employer] Care Teams Drafter Patent Relationship Specialty Start Date End Date Physician, No Pcp PCP - General 09/02/24
--- OUTSIDE RECORDS SUMMARY | 2025-05-31 10:31 | XMS_ITS | Encounter Summary ---
Author Organization [employer] Address [address] [place] [address] Care Team Providers Care Journalism Professor Name Role Phone Name, Ej GRAY Primary Care Provider [phone] Reason for Visit * Reason Onset Date Comments Medication Question 04/05/2023 Encounter Details Date Type Department Care Team ([facility] Contact Info) Description 04/05/2023 Telephone [facility] MEDICINE [address] [place], [place] [id number] Name, MD Ej [address] [place] [address] Medication Question Social History Tobacco Use Types Packs/Day Years Used Date Smoking Tobacco: Never Smokeless Tobacco: Never Alcohol Use Standard Drinks/Week Comments Never 0 (1 standard drink = 0.6 oz pur e alcohol) PHQ-2 Answer Date Recorded Patient Health Questionnaire-2 Score 0 06/07/2022 Housing Stability Answer Date Recorded What is your housing situation today? I have nica ott 04/05/[address] you [...] No answer. LVM to call back on [phone].. RN will forward this message to PCP as DEANNE. * Telephone Encounter - Yasemin Treviño - 04/05/2023 1:22 PM EDT Tc from daughter requesting a call in regards to dulaglutide (Trulicity) 0.75 MG/0.5ML solution pen-injector. States co-pay is 225 and cannot afford. Please contact daughter at [phone] documented in this encounter Plan of Treatment Not on file documented as of this encounter Visit Diagnoses Not on filedocumented in this encounter Care Teams Journalism Professor Relationship Specialty Start Date End Date Name, MD Ej [address] [place] [address] PCP - General Family Medicine 06/24/15 documented as of this encounter
--- OUTSIDE RECORDS SUMMARY | 2025-05-31 10:31 | XMS_ITS | Encounter Summary ---
Author Organization [email or web address] [facility] Address [address] [place] [address] [address] [place] [address] Care Team Providers Care Director It Project Name Role Phone Name, Ej GRAY Primary Care Provider [phone] Encounter Details Date Type Department Care Team (Late st Contact Info) Description 11/07/2022 Abstract [facility] MEDICINE [address] [place], [place] [phone] Name, MD Ej [address] [place] [address] Social History Tobacco Use Types Packs/Day Years [...] on file documented as of this encounter Procedures Procedure Name Priority Date/Time Associated Diagnosis Comments COLONOSCOPY Routine 06/18/2013 documented in this encounter Results * Colonoscopy (06/18/2013) Colonoscopy Normal Normal Narrative CelesteEllyn call - 06/18/2013 Repeat in 5 years Historical Provider HEALTH MAINTENANCE Final Result documented in this encounter Visit Diagnoses Not on filedocumented in this encounter Care Teams Director It Project Relationship Specialty Start Date End Date Name, MD Ej [address] [place] [address] PCP - General Family Medicine 06/24/15 documented as of this encounter
== END 2025-05-31 10:28 | disposition home or self-care (01) ==
LOC: HO.MAMMO 10:27
PROVIDERS: PCP Internal Medicine Geriatric Medicine; Visit Provider Internal Medicine Geriatric Medicine
DX: Z12.31 Encounter for screening mammogram for malignant neoplasm of breast (principal)
CPT/HCPCS: 77063; 77067

== ENCOUNTER → 2025-05-31 10:45 | Outpatient (BNV) | payer OTHER, SELFPAY | PROVIDERS: PCP Internal Medicine Geriatric Medicine; Visit Provider Internal Medicine | DX: Z12.31 Encounter for screening mammogram for malignant neoplasm of breast (principal) | CPT/HCPCS: 77063; 77067 ==